=== PATIENT | female | born 1970 | race Caucasian/White ===

== ENCOUNTER 2020-01-13 10:36 | Emergency (ER) | payer MEDICARE ==
[2020-01-13] MEDS ORDERED: Acetaminophen 325 MG Tab PO ONE (11:14)
[2020-01-13] MEDS ORDERED: Sodium Chloride 0.9% 1,000 ML IV ONE (11:14)
[2020-01-13] MEDS ORDERED: Metoclopramide 10 MG/2 ML SDV IVPUSH ONE (11:14)
[2020-01-13] MEDS ORDERED: diphenhydrAMINE 50 MG/ML SDV IVPUSH ONE (11:15)
--- NOTE | 2020-01-13 11:18 | EDM.PDOC ---
ED [facility] GENERAL MEDICAL PROBLEM - General Chief Complaint: General Stated Complaint: HEADACHE Time Seen by Provider: 01/13/20 11:18 Source of Information: Reports: Patient - History of Present Illness INITIAL COMMENTS - FREE TEXT/NARRATIVE: Patient is 49-year-old female past medical history of fibromyalgia and degenerative disc disease as well as migraines presenting with a chief complaint of headache. Patient states that 1.5 weeks ago she started developing a generalized headache which was different than her normal migraines. Is gradual in onset but severe enough to lead to vomiting. Headache resolved on its own and the patient has been without headache for about 1 week. On Saturday and Saturday night of this week, the patient is noted recurrence of a similar headache. Patient states that the headache seems to be worse at night and is associated with vomiting. She feels generally unwell and states that she thinks she has been having a fever. In addition, she notes some dysuria but no flank pain no abdominal pain no changes from her normal bowel habits. She has been taking hydrocodone for the symptoms without relief. Pmhx: None Pshx: None Family Hx: noncontributory Smoking history? no Etoh use? none Drug use? none In addition to that documented in the HPI above, the additional ROS was obtained : Constitutional: Objective fevers are present Eyes: Denies vision changes ENMT: Denies sore throat CV: Denies chest pain Resp: Denies SOB GI: Per HPI : Per HPI MSK: Denies recent trauma Skin: Denies new rashes Neuro: Denies new numbness or tingling or weakness Endocrine: Denies unexpected weight loss Heme: Denies bleeding disorders I have reviewed the triage vital signs Const: Well nourished, well developed, appears stated age Eyes: PERRL, no conjunctival injection HENT: NCAT, Neck supple without meningismus CV: RRR, Warm, well-perfused extremities RESP: CTAB, Unlabored respiratory effort GI: soft, non-tender, non-distended, no masses MSK: No gross deformities appreciated Skin: Warm, dry. No rashes Neuro: Alert, body and frame man II-XII grossly intact. Sensation and motor function of extremities grossly intact. Psych: Appropriate mood and affect Assessment and plan: Patient is a 49-year-old female presenting with chief complaint of headache. Headache is not suspicious for subarachnoid hemorrhage or encephalitis. Patient has normal neuro exam in the emergency room. Patient has normal mental status. Headache description is more consistent with tension type headache. Subjective fevers and body aches may be related to urinary tract infection however patient had normal temperature here and was not tachycardic so I do not suspect pyelonephritis at this time. Patient feels better after the administration of pain medications in the ER and is asked to be discharged home. Patient can be safely discharged with diagnosis of headache and UTI. Patient given return precautions. All questions addressed and answered. Patient agrees with plan. Occipital Head Pain Score (Numeric/FACES): 3 - Related Data Allergies Allergy/AdvReac Type Severity Reaction Status Date / Time ketorolac [From Toradol] Allergy Nausea and Verified 01/13/20 10:47 Vomiting ketorolac tromethamine Allergy Swelling Verified 01/13/20 10:47 [From Toradol] naproxen [From Anaprox] Allergy Anxiety Verified 01/13/20 10:47 pregabalin [From Lyrica] Allergy Swelling Verified 01/13/20 10:47 prochlorperazine Allergy Nausea and Verified 01/13/20 10:47 [From Compazine] Vomiting tramadol Allergy Swelling Verified 01/13/20 10:47 zolmitriptan [From Zomig] Allergy Chest Verified 01/13/20 10:47 Tightness codeine AdvReac Vomiting Verified 01/13/20 10:47 droperidol [From Inapsine] AdvReac Irritabilit Verified 01/13/20 10:47 y prochlorperazine edisylate AdvReac Vomiting Verified 01/13/20 10:47 [From Compazine] prochlorperazine maleate AdvReac Vomiting Verified 01/13/20 10:47 [From Compazine] zomeg Allergy Chest Uncoded 01/13/20 10:47 Presssure Home Meds: Home Meds Citalopram Hydrobromide [Celexa] 40 mg PO DAILY 04/04/15 [History] Rosuvastatin [Crestor] 1 tab PO DAILY 03/25/18 [History] Acetaminophen/HYDROcodone [[place] 325-5 MG] 1 tab PO Q6H PRN #10 tablet 12/15/18 [Rx] Nitrofurantoin Monohyd/M-Cryst [Macrobid 100 mg Capsule] 100 mg PO BID #10 capsule 01/13/20 [Rx] Past Medical History Cardiovascular History: Reports: High Cholesterol Respiratory History: Reports: Bronchitis, Recurrent Gastrointestinal History: Reports: PUD Other Gastrointestinal History: Ulcers, incarcerated hernia Genitourinary History: Reports: None [employer]CR[employer]E [employer] History: Reports: Other [employer] History: Musculoskeletal History: Reports: Back Pain, Chronic Other Musculoskeletal History: degenerative disc disease, carpal tunnel Neurological History: Reports: Headaches, Chronic, Migraines Psychiatric History: Reports: Anxiety, Depression Endocrine/Metabolic History: Reports: Diabetes, Type II, Obesity/BMI 30+, Other (See Below) Other Endocrine/Metabolic History: Diet Controlled per patinet's report Hematologic History: Reports: None Other Hematologic History: elevated WBC count Immunologic History: Reports: None Oncologic (Cancer) History: Reports: None Dermatologic History: Reports: None - Infectious Disease History Infectious Disease History: Reports: Chicken Pox - Past Surgical History Head Surgeries/Procedures: Reports: None HEENT Surgical History: Reports: Oral Surgery GI Surgical History: Reports: Cholecystectomy Female Surgical History: Reports: Section, Hysterectomy, Oophorectomy Social & Family History - Family History Family Medical History: Noncontributory - Tobacco Use Smoking Status *Q: Current Every Day Smoker Years of Tobacco use: 35 Packs/Tins Daily: 0.5 Used Tobacco, but Quit: No Second Hand Smoke Exposure: Yes - Caffeine Use Caffeine Use: Reports: Coffee - Recreational Drug Use Recreational Drug Use: No - Living Situation & Occupation Living situation: Reports: , with Spouse Occupation: Unemployed ED ROS GENERAL - Review of Systems Review Of Systems: See Below ED EXAM, GENERAL - Physical Exam Exam: See Below Course - Vital Signs Last Recorded V/S: Last Vital Signs Temp 36.1 C 01/13/20 14:09 Pulse 63 01/13/20 14:09 Resp 18 01/13/20 14:09 BP 130/83 01/13/20 14:09 Pulse Ox 96 01/13/20 14:09 - Orders/Labs/Meds Orders: Active Orders 24 hr Category Date Time Status CULTURE URINE [RM] Stat Lab 01/13/20 11:25 Received Labs: Laboratory Tests 01/13/20 Range/Units 11:25 Urine Color YELLOW Urine Appearance CLEAR Urine pH 7.0 (5.0-8.0) Ur Specific [place] 1.010 (1.001-1.035) Urine Protein NEGATIVE (NEGATIVE) mg/dL Urine Glucose (UA) NEGATIVE (NEGATIVE) mg/dL Urine Ketones NEGATIVE (NEGATIVE) mg/dL Urine Occult Blood TRACE-INTACT H (NEGATIVE) Urine Nitrite NEGATIVE (NEGATIVE) Urine Bilirubin NEGATIVE (NEGATIVE) Urine Urobilinogen 0.2 (<2.0) EU/dL Ur Leukocyte Esterase SMALL H (NEGATIVE) Urine RBC 1-3 (0-2/HPF) Urine WBC 1-3 (0-5/HPF) Ur Epithelial Cells FEW (NONE-FEW) Urine Bacteria RARE (NEGATIVE) Meds: Medications Discontinued Medications Generic Name Dose Route Start Last Admin Trade Name Freq PRN Reason Stop Dose Admin Acetaminophen 650 mg 01/13/20 11:14 01/13/20 11:24 Tylenol PO 01/13/20 11:15 650 mg NOW ONE Administration Diphenhydramine HCl 25 mg 01/13/20 11:15 01/13/20 11:25 Benadryl IVPUSH 01/13/20 11:16 25 mg ONETIME ONE Administration Sodium Chloride 1,000 mls @ 1,000 mls/hr 01/13/20 11:14 01/13/20 11:25 Normal Saline IV 01/13/20 12:13 1,000 mls/hr .Bolus ONE Administration Metoclopramide HCl 10 mg 01/13/20 11:14 01/13/20 11:25 Reglan IVPUSH 01/13/20 11:15 10 mg ONETIME ONE Administration Morphine Sulfate 6 mg 01/13/20 13:27 01/13/20 13:46 Morphine IVPUSH 01/13/20 13:28 6 mg ONETIME ONE Administration Nitrofurantoin Macrocrystals 100 mg 01/13/20 13:28 01/13/20 13:45 Macrobid PO 01/13/20 13:29 100 mg ONETIME ONE Administration Ondansetron HCl 4 mg 01/13/20 13:27 01/13/20 13:45 Zofran IVPUSH 01/13/20 13:28 4 mg ONETIME ONE Administration Departure - Departure Time of Disposition: 13:50 Disposition: Home, Self-Care 01 Clinical Impression: UTI, Urinary tract infectious disease, Headache - Discharge Information Prescriptions: Nitrofurantoin Monohyd/M-Cryst [Macrobid 100 mg Capsule] 100 mg PO BID #10 capsule Instructions: Urinary Tract Infection, Adult Referrals: Ladi Gallagher PA-C [Primary Care Provider] - Forms: ED Department Discharge Additional Instructions: The following information is given to patients seen in the emergency department who are being discharged to home. This information is to outline your options for follow-up care. We provide all patients seen in our emergency department with a follow-up referral. The need for follow-up, as well as the timing and circumstances, are variable depending upon the specifics of your emergency department visit. If you don't have a primary care physician on staff, we will provide you with a referral. We always advise you to contact your personal physician following an emergency department visit to inform them of the circumstance of the visit and for follow-up with them and/or the need for any referrals to a consulting specialist. The emergency department will also refer you to a specialist when appropriate. This referral assures that you have the opportunity for follow-up care with a specialist. All of these measure are taken in an effort to provide you with optimal care, which includes your follow-up. Under all circumstances we always encourage you to contact your private physician who remains a resource for coordinating your care. When calling for follow-up care, please make the office aware that this follow-up is from your recent emergency room visit. If for any reason you are refused follow-up, please contact the [facility] Emergency Department at and asked to speak to the emergency department charge nurse. Sepsis Event Note - Evaluation Sepsis Screening Result: No Definite Risk - Focused Exam Vital Signs: Vital Signs Temp Pulse Resp BP Pulse Ox 01/13/20 14:09 36.1 C 63 18 130/83 96 01/13/20 10:48 35.7 C L 65 18 154/82 H 98 Date Exam was Performed: 01/13/20 Time Exam was Performed: 16:51 - My Orders Last 24 Hours: My Active Orders 01/13/20 11:25 CULTURE URINE [RM] Stat - Assessment/Plan Last 24 Hours: My Active Orders 01/13/20 11:25 CULTURE URINE [RM] Stat
[2020-01-13] MEDS ORDERED: Ondansetron 4 MG/2 ML SDV IVPUSH ONE (13:27)
[2020-01-13] MEDS ORDERED: Morphine 10 MG/ML Syringe IVPUSH ONE (13:27)
[2020-01-13] MEDS ORDERED: Nitrofurantoin Monohydrate/Macrocrystalline 100 MG Cap PO ONE (13:28)
[2020-01-13 14:13] VITALS: BP 130/83; PULSE 63
== END 2020-01-13 14:09 | disposition home or self-care (01) ==
LOC: MW.ED 10:36
DX: R51 Headache (principal); N39.0 Urinary tract infection, site not specified; E78.00 Pure hypercholesterolemia, unspecified; F41.9 Anxiety disorder, unspecified; F32.9 Major depressive disorder, single episode, unspecified; E11.9 Type 2 diabetes mellitus without complications; E66.9 Obesity, unspecified; Z68.36 Body mass index [BMI] 36.0-36.9, adult; F17.210 Nicotine dependence, cigarettes, uncomplicated; Z88.6 Allergy status to analgesic agent; Z88.8 Allergy status to other drugs, medicaments and biological substances; Z88.5 Allergy status to narcotic agent
CPT/HCPCS: 81001; 87086; 96361; 96374; 96375; 99284; A9270; J1200; J2270; J2405; J2765; J7030; 99283

== ENCOUNTER 2020-03-12 16:25 | Emergency (ER) | payer SELFPAY ==
[2020-03-12] MEDS ORDERED: Dexamethasone 10 MG/ML SDV IM ONE (17:19)
[2020-03-12] MEDS ORDERED: Ketorolac 15 MG/ML SDV IM ONE (17:19)
--- NOTE | 2020-03-12 17:24 | EDM.PDOC ---
<Brynn Mc - Last Filed: 03/12/20 19:48> [facility] GENERAL MEDICAL PROBLEM - General Chief Complaint: Neck Problem Stated Complaint: NECK PAIN/HEADACHE Time Seen by Provider: 03/12/20 17:18 - History of Present Illness INITIAL COMMENTS - FREE TEXT/NARRATIVE: History of present illness: 49-year-old female tenting with ongoing headache and neck pain for the last 3 months after a fall in November 2019. Apparently she lost her balance and struck her head and has been having some ongoing symptoms since then. She did not seek care at that time. She does report she has some prior neck issues and at this point she feels like she cannot even turn her head from side to side and the pain has been ongoing. Review of systems: As per history of present illness and below otherwise all systems reviewed and negative. Past medical history: As per history of present illness and as reviewed below otherwise noncontributory. Surgical history: As per history of present illness and as reviewed below otherwise noncontributory. Social history: No reported history of drug or alcohol abuse. Denies tobacco Family history: As per history of present illness and as reviewed below otherwise noncontribut ory. Physical exam: GEN: no acute distress, well appearing HEENT: Atraumatic, normocephalic, mucous membranes moist, Neck: Neck tenderness, midline and paraspinal tenderness, patient with limited range of motion due to pain.. Lungs: No respiratory distress. Heart: RRR Extremities: Atraumatic. Neurovascularly intact. Neuro: Awake, alert, oriented. Neuro Exam nonfocal. Psych: Appears anxious Skin: warm, dry, no lesions Diagnostics: CT head and neck Therapeutics: [] MDM: Impression: [] Plan: [] Definitive disposition and diagnosis as appropriate pending reevaluation and review of above. Neck Pain Score (Numeric/FACES): 8 - Related Data Allergies Allergy/AdvReac Type Severity Reaction Status Date / Time ketorolac [From Toradol] Allergy Nausea and Verified 03/12/20 16:38 Vomiting ketorolac tromethamine Allergy Swelling Verified 03/12/20 16:38 [From Toradol] naproxen [From Anaprox] Allergy Anxiety Verified 03/12/20 16:38 pregabalin [From Lyrica] Allergy Swelling Verified 03/12/20 16:38 prochlorperazine Allergy Nausea and Verified 03/12/20 16:38 [From Compazine] Vomiting tramadol Allergy Swelling Verified 03/12/20 16:38 zolmitriptan [From Zomig] Allergy Chest Verified 03/12/20 16:38 Tightness codeine AdvReac Vomiting Verified 03/12/20 16:38 droperidol [From Inapsine] AdvReac Irritabilit Verified 03/12/20 16:38 y prochlorperazine edisylate AdvReac Vomiting Verified 03/12/20 16:38 [From Compazine] prochlorperazine maleate AdvReac Vomiting Verified 03/12/20 16:38 [From Compazine] zomeg Allergy Chest Uncoded 03/12/20 16:38 Presssure Home Meds: Home Meds Citalopram Hydrobromide [Celexa] 40 mg PO DAILY 04/04/15 [History] Rosuvastatin [Crestor] 1 tab PO DAILY 03/25/18 [History] Acetaminophen/HYDROcodone [[place] 325-5 MG] 1 tab PO Q6H PRN #10 tablet 12/15/18 [Rx] Pregabalin [Lyrica] 1 tab PO DAILY 03/12/20 [History] Past Medical History Cardiovascular History: Reports: High Cholesterol Respiratory History: Reports: Bronchitis, Recurrent Gastrointestinal History: Reports: PUD Other Gastrointestinal History: Ulcers, incarcerated hernia Genitourinary History: Reports: None DIRECTOR OF STUDENT AFFAIRS History: Reports: Other DIRECTOR OF STUDENT AFFAIRS History: Musculoskeletal History: Reports: Back Pain, Chronic Other Musculoskeletal History: degenerative disc disease, carpal tunnel Neurological History: Reports: Headaches, Chronic, Migraines Psychiatric History: Reports: Anxiety, Depression Endocrine/Metabolic History: Reports: Diabetes, Type II, Obesity/BMI 30+, Other (See Below) Other Endocrine/Metabolic History: Diet Controlled per patinet's report Hematologic History: Reports: None Other Hematologic History: elevated WBC count Immunologic History: Reports: None Oncologic (Cancer) History: Reports: None Dermatologic History: Reports: None - Infectious Disease History Infectious Disease History: Reports: None - Past Surgical History Head Surgeries/Procedures: Reports: None HEENT Surgical History: Reports: Oral Surgery GI Surgical History: Reports: Cholecystectomy Female Surgical History: Reports: Section, Hysterectomy, Oophorectomy Social & Family History - Family History Family Medical History: Noncontributory - Tobacco Use Smoking Status *Q: Never Smoker - Caffeine Use Caffeine Use: Reports: None - Recreational Drug Use Recreational Drug Use: No - Living Situation & Occupation Living situation: Reports: , with Spouse Occupation: Unemployed ED ROS GENERAL - Review of Systems Review Of Systems: See Below (See HP I) ED EXAM, UPPER BACK/NECK PAIN - Physical Exam Exam: See Below (See HPI) Course - Vital Signs Text/Narrative:: Chronic head and neck pain after remote injury. Suspect ongoing concussion type symptoms and tension headaches. Will attempt pain control and steroid administration. Will check CT scans as she never had any imaging after the initial injury. - Re-Assessments/Exams Free Text/Narrative Re-Assessment/Exam: 03/12/20 19:49 Reports she has had no symptom relief. Additional pain medication will be ordered. I discussed limited ability for pain medications based on her multiple medication allergies and other multiple potential interactions. Will give lidocaine patch and IM Dilaudid. Patient reports she will call her pain management doctor for follow-up. We did discuss that she would likely benefit from some physical therapy to help loosen and increase flexibility of the muscles of her neck which have likely tightened significantly and continue to tighten since the injury. Departure - Departure Disposition: Home, Self-Care 01 Clinical Impression: DJD (degenerative joint disease) of cervical spine, Pain - Discharge Information Instructions: Acute Pain, Adult Referrals: Ladi Gallagher PA-C [Primary Care Provider] - Forms: ED Department Discharge Additional Instructions: The following information is given to patients seen in the emergency department who are being discharged to home. This information is to outline your options for follow-up care. We provide all patients seen in our emergency department with a follow-up referral. The need for follow-up, as well as the timing and circumstances, are variable depending upon the specifics of your emergency department visit. If you don't have a primary care physician on staff, we will provide you with a referral. We always advise you to contact your personal physician following an emergency department visit to inform them of the circumstance of the visit and for follow-up with them and/or the need for any referrals to a consulting specialist. The emergency department will also refer you to a specialist when appropriate. This referral assures that you have the opportunity for follow-up care with a specialist. All of these measure are taken in an effort to provide you with optimal care, which includes your follow-up. Under all circumstances we always encourage you to contact your private physician who remains a resource for coordinating your care. When calling for follow-up care, please make the office aware that this follow-up is from your recent emergency room visit. If for any reason you are refused follow-up, please contact the [facility] Emergency Department at and asked to speak to the emergency department charge nurse. Sepsis Event Note (ED) - Evaluation Sepsis Screening Result: No Definite Risk <Krishna Matson - Last Filed: 03/12/20 20:11> Course - Vital Signs Last Recorded V/S: Last Vital Signs Temp 97.8 F 03/12/20 16:39 Pulse 92 03/12/20 18:46 Resp 18 03/12/20 16:39 BP 137/79 03/12/20 18:46 Pulse Ox 98 03/12/20 18:46 - Orders/Labs/Meds Meds: Medications Discontinued Medications Generic Name Dose Route Start Last Admin Trade Name Freq PRN Reason Stop Dose Admin Dexamethasone 10 mg 03/12/20 17:19 03/12/20 17:33 Dexamethasone IM 03/12/20 17:20 10 mg ONETIME ONE Administration Hydromorphone HCl 1 mg 03/12/20 19:49 03/12/20 20:05 Dilaudid IM 03/12/20 19:50 1 mg ONETIME ONE Administration Ketorolac Tromethamine 30 mg 03/12/20 17:19 03/12/20 17:27 Toradol IM 03/12/20 17:20 Not Given ONETIME ONE Lidocaine 700 mg 03/12/20 19:52 03/12/20 20:04 Lidoderm 5% TOP 03/12/20 19:53 700 mg ONETIME ONE Administration Oxycodone/Acetaminophen 1 tab 03/12/20 17:26 03/12/20 17:31 Percocet 325-5 Mg PO 03/12/20 17:27 1 tab ONETIME ONE Administration Departure - Departure Time of Disposition: 20:10 Condition: Good Sepsis Event Note (ED) - Focused Exam Vital Signs: Vital Signs Temp Pulse Resp BP Pulse Ox 03/12/20 18:46 92 137/79 98 03/12/20 16:39 97.8 F 84 18 138/91 H 98
[2020-03-12] MEDS ORDERED: Acetaminophen/oxyCODONE 325-5 MG Tab PO ONE (17:26)
--- NOTE | 2020-03-12 18:16 | CT ---
CT cervical spine Technique: Multiple axial sections were obtained from above C1 inferiorly to the bottom of T2. Reconstructed sagittal and coronal images were reviewed. Comparison: No prior cervical spine imaging is available. Findings: Vertebral body heights and disc spaces are maintained. No bony central or bony neural foraminal stenosis is seen. No fracture is appreciated. No abnormal subluxation is appreciated. Impression: 1. Nothing acute is appreciated on CT study of the cervical spine. Diagnostic code #1 This report was dictated in MDT
--- NOTE | 2020-03-12 18:17 | CT ---
Head CT Technique: Multiple axial sections through the brain were obtained. Intravenous contrast was not utilized. Comparison: No prior intracranial imaging is available. Findings: Retention cyst is noted within the right maxillary sinus measuring approximately 1.5 cm in size. No acute finding is seen within the visualized paranasal sinuses. Visualized mastoid sinuses show nothing acute. No acute calvarial finding is seen. Ventricles along with basal cisterns and sulci over the convexities are within normal limits for the patient's age. No abnormal parenchymal densities are seen. No evidence of intracranial hemorrhage. No midline shift or mass-effect is appreciated. Impression: 1. Retention cyst within the right maxillary sinus. 2. Nothing acute is seen on noncontrast head CT study. Diagnostic code #2 This report was dictated in MDT
[2020-03-12 18:47] VITALS: BP 137/79; PULSE 92
[2020-03-12] MEDS ORDERED: HYDROmorphone 1 MG/ML Syringe IM ONE (19:49)
[2020-03-12] MEDS ORDERED: Lidocaine 5% 700 MG Patch TOP ONE (19:52)
== END 2020-03-12 20:23 | disposition home or self-care (01) ==
LOC: MW.ED 16:25
DX: M47.812 Spondylosis without myelopathy or radiculopathy, cervical region (principal); F41.9 Anxiety disorder, unspecified; F32.9 Major depressive disorder, single episode, unspecified; E78.00 Pure hypercholesterolemia, unspecified; E11.9 Type 2 diabetes mellitus without complications; E66.9 Obesity, unspecified; Z68.34 Body mass index [BMI] 34.0-34.9, adult; Z88.6 Allergy status to analgesic agent; Z88.8 Allergy status to other drugs, medicaments and biological substances; Z88.5 Allergy status to narcotic agent; Z79.899 Other long term (current) drug therapy
CPT/HCPCS: 70450; 72125; 96372; 99284; A9270; J1100; J1170

== ENCOUNTER 2020-05-13 10:24 | Emergency (ER) | payer MEDICARE ==
--- NOTE | 2020-05-13 10:39 | EDM.PDOC ---
ED HPI GENERAL MEDICAL PROBLEM - General Chief Complaint: Genitourinary Problem Stated Complaint: URINARY BLOOD Time Seen by Provider: 05/13/20 10:25 Source of Information: Reports: Patient History Limitations: Reports: No Limitations - History of Present Illness INITIAL COMMENTS - FREE TEXT/NARRATIVE: HISTORY AND PHYSICAL: History of present illness: Patient is a 49-year-old female who presents to the ED today with concern hematuria that started this morning with mild abdominal discomfort. Patient states that when she woke up and went to the bathroom she noticed blood in her urine. Patient states that shortly after this she began having lower abdominal discomfort. Patient states she has a history of her gallbladder removed and partial hysterectomy but denies any other abdominal surgeries. Patient states she has not taken anything for her symptoms but does take hydrocodone daily due to chronic back pain and fibromyalgia. Patient states she also has a history of high cholesterol and migraines but denies any other health history. Patient states she has not had symptoms like this prior. Patient states the bleeding is not coming from her vagina and only occurs when she urinates. Patient denies fever, chills, chest pain, shortness of breath, or cough. Denies headache, neck stiff ness, change in vision, syncope, or near syncope. Denies nausea, vomiting, diarrhea, constipation, or dysuria. Has not noted any blood stool. Patient has been eating and drinking appropriately. Review of systems: As per history of present illness and below otherwise all systems reviewed and negative. Past medical history: As per history of present illness and as reviewed below otherwise noncontributory. Surgical history: As per history of present illness and as reviewed below otherwise noncontributory. Social history: See social history for further information Family history: As per history of present illness and as reviewed below otherwise noncontributory. Physical exam: General: Patient is alert, oriented, and in no acute distress. Patient laying comfortably on exam table. HEENT: Atraumatic, normocephalic, pupils equal and reactive bilaterally, negativ e for conjunctival pallor or scleral icterus, mucous membranes moist, TMs normal bilaterally, throat clear, neck supple, nontender, trachea midline. No drooling or trismus noted. No meningeal signs. No hot potato voice noted. Lungs: Clear to auscultation, breath sounds equal bilaterally, chest nontender. Heart: S1S2, regular rate and rhythm without overt murmur Abdomen: Physical exam of abdomen is limited due to body habitus. Otherwise, soft, nondistended, mild discomfort of generalized lower abdomen. Negative for masses or hepatosplenomegaly. Negative for costovertebral tenderness. Pelvis: Stable nontender. Genitourinary: Deferred. Rectal: Deferred. Skin: Intact, warm, dry. No lesions or rashes noted. Extremities: Atraumatic, negative for cords or calf pain. Neurovascular unremarkable. Neuro: Awake, alert, oriented. Cranial nerves II through XII unremarkable. Cerebellum unremarkable. Motor and sensory unremarkable throughout. Exam nonfocal. Notes: Discussed importance for follow-up with a primary care provider. Voices understanding and is agreeable to plan of care. Denies any further questions or concerns at this time. Diagnostics: UA, urine hCG, urine culture, EKG, CBC, CMP, Lactate, Blood cultures x 2, abd/pelvic CT Therapeutics: NS, Rocephin 1g IV, Morphine 2mg IV Prescription: Bactrim DS, Pyridium Impression: Urinary tract infection, uncomplicated Plan: 1. Take medication as prescribed. Follow-up with a primary care provider as discussed. Return to the ED as needed and as discussed. Definitive disposition and diagnosis as appropriate pending reevaluation and review of above. Bladder Pain Score (Numeric/FACES): 8 - Related Data Allergies Allergy/AdvReac Type Severity Reaction Status Date / Time ketorolac [From Toradol] Allergy Nausea and Verified 05/13/20 10:41 Vomiting ketorolac tromethamine Allergy Swelling Verified 05/13/20 10:41 [From Toradol] naproxen [From Anaprox] Allergy Anxiety Verified 05/13/20 10:41 pregabalin [From Lyrica] Allergy Swelling Verified 05/13/20 10:41 prochlorperazine Allergy Nausea and Verified 05/13/20 10:41 [From Compazine] Vomiting tramadol Allergy Swelling Verified 05/13/20 10:41 zolmitriptan [From Zomig] Allergy Chest Verified 05/13/20 10:41 Tightness codeine AdvReac Vomiting Verified 05/13/20 10:41 droperidol [From Inapsine] AdvReac Irritabilit Verified 05/13/20 10:41 y prochlorperazine edisylate AdvReac Vomiting Verified 05/13/20 10:41 [From Compazine] prochlorperazine maleate AdvReac Vomiting Verified 05/13/20 10:41 [From Compazine] zomeg Allergy Chest Uncoded 05/13/20 10:41 Presssure Home Meds: Home Meds Citalopram Hydrobromide [Celexa] 40 mg PO DAILY 04/04/15 [History] Rosuvastatin [Crestor] 1 tab PO DAILY 03/25/18 [History] Acetaminophen/HYDROcodone [[place] 325-5 MG] 1 tab PO Q6H PRN #10 tablet 12/15/18 [Rx] Phenazopyridine HCl [Pyridium] 200 mg PO TID 2 Days #6 tablet 05/13/20 [Rx] Sulfamethoxazole/Trimethoprim [Bactrim Ds Tablet] 1 each PO BID 7 Days #14 tablet 05/13/20 [Rx] Past Medical History Cardiovascular History: Reports: High Cholesterol Respiratory History: Reports: Bronchitis, Recurrent Gastrointestinal History: Reports: PUD Other Gastrointestinal History: Ulcers, incarcerated hernia Genitourinary History: Reports: None MOLD CARPENTER History: Reports: Other MOLD CARPENTER History: Musculoskeletal History: Reports: Back Pain, Chronic Other Musculoskeletal History: degenerative disc disease, carpal tunnel Neurological History: Reports: Headaches, Chronic, Migraines Psychiatric History: Reports: Anxiety, Depression Endocrine/Metabolic History: Reports: Diabetes, Type II, Obesity/BMI 30+, Other (See Below) Other Endocrine/Metabolic History: Diet Controlled per patinet's report Hematologic History: Reports: None Other Hematologic History: elevated WBC count Immunologic History: Reports: None Oncologic (Cancer) History: Reports: None Dermatologic History: Reports: None - Infectious Disease History Infectious Disease History: Reports: None - Past Surgical History Head Surgeries/Procedures: Reports: None HEENT Surgical History: Reports: Oral Surgery GI Surgical History: Reports: Cholecystectomy Female Surgical History: Reports: Section, Hysterectomy, Oophorectomy Social & Family History - Family History Family Medical History: Noncontributory - Caffeine Use Caffeine Use: Reports: None - Living Situation & Occupation Living situation: Reports: , with Spouse Occupation: Unemployed ED ROS GENERAL - Review of Systems Review Of Systems: Comprehensive ROS is negative, except as noted in HPI. ED EXAM, GENERAL - Physical Exam Exam: See Below (see dictation) Course - Vital Signs Last Recorded V/S: Last Vital Signs Temp 97.7 F 05/13/20 13:25 Pulse 62 05/13/20 13:25 Resp 16 05/13/20 11:28 BP 128/79 05/13/20 13:25 Pulse Ox 94 L 05/13/20 13:25 - Orders/Labs/Meds Orders: Active Orders 24 hr Category Date Time Status EKG Documentation Completion [RC] STAT Care 05/13/20 11:19 Active CULTURE BLOOD [BC] Stat Lab 05/13/20 11:46 Received CULTURE BLOOD [BC] Stat Lab 05/13/20 12:11 Results CULTURE URINE [RM] Stat Lab 05/13/20 10:30 Received Blood Culture x2 Reflex Set [OM.PC] Stat Oth 05/13/20 11:19 Ordered Labs: Laboratory Tests 05/13/20 05/13/20 05/13/20 Range/Units 10:30 10:30 11:46 WBC 9.70 (4.0-11.0) K/uL RBC 5.34 (4.30-5.90) M/uL Hgb 16.3 H (12.0-16.0) g/dL Hct 48.9 H (36.0-46.0) % MCV 91.6 (80.0-98.0) fL MCH 30.5 (27.0-32.0) pg MCHC 33.3 (31.0-37.0) g/dL RDW Std Deviation 44.1 (28.0-62.0) fl RDW Coeff of Delphine 13 (11.0-15.0) % Plt Count 176 (150-400) K/uL MPV 11.40 (7.40-12.00) fL Neut % (Auto) 56.4 (48.0-80.0) % Lymph % (Auto) 33.2 (16.0-40.0) % [place] % (Auto) 8.4 (0.0-15.0) % Eos % (Auto) 1.4 (0.0-7.0) % Baso % (Auto) 0.6 (0.0-1.5) % Neut # (Auto) 5.5 (1.4-5.7) K/uL Lymph # (Auto) 3.2 H (0.6-2.4) K/uL [place] # (Auto) 0.8 (0.0-0.8) K/uL Eos # (Auto) 0.1 (0.0-0.7) K/uL Baso # (Auto) 0.1 (0.0-0.1) K/uL Nucleated RBC % 0.0 /100WBC Nucleated RBCs # 0 K/uL Lactate (0.20-2.00) mmol/L Sodium (136-145) mmol/L Potassium (3.5-5.1) mmol/L Chloride (98-107) mmol/L Carbon Dioxide (21.0-32.0) mmol/L BUN (7.0-18.0) mg/dL Creatinine (0.6-1.0) mg/dL Est Cr Clr Drug Dosing mL/min Estimated GFR (MDRD) ml/min Glucose (74-106) mg/dL Calcium (8.5-10.1) mg/dL Total Bilirubin (0.2-1.0) mg/dL AST (15-37) IU/L ALT (14-63) IU/L Alkaline Phosphatase (46-116) U/L Total Protein (6.4-8.2) g/dL Albumin (3.4-5.0) g/dL Globulin (2.6-4.0) g/dL Albumin/Globulin Ratio (0.9-1.6) Lipase (73-393) U/L Urine Color RED Urine Appearance SLT CLOUDY Urine pH 7.5 (5.0-8.0) Ur Specific [place] 1.015 (1.001-1.035) Urine Protein 100 H (NEGATIVE) mg/dL Urine Glucose (UA) NEGATIVE (NEGATIVE) mg/dL Urine Ketones NEGATIVE (NEGATIVE) mg/dL Urine Occult Blood LARGE H (NEGATIVE) Urine Nitrite POSITIVE H (NEGATIVE) Urine Bilirubin MODERATE H (NEGATIVE) Urine Ictotest NEGATIVE Urine Urobilinogen 1.0 (<2.0) EU/dL Ur Leukocyte Esterase MODERATE H (NEGATIVE) Urine RBC 40-50 (0-2/HPF) Urine WBC 20-30 (0-5/HPF) Ur Epithelial Cells RARE (NONE-FEW) Urine Bacteria RARE (NEGATIVE) Urine HCG, Qual NEGATIVE (NEGATIVE) 05/13/20 05/13/20 Range/Units 11:46 11:46 WBC (4.0-11.0) K/uL RBC (4.30-5.90) M/uL Hgb (12.0-16.0) g/dL Hct (36.0-46.0) % MCV (80.0-98.0) fL MCH (27.0-32.0) pg MCHC (31.0-37.0) g/dL RDW Std Deviation (28.0-62.0) fl RDW Coeff of Delphine (11.0-15.0) % Plt Count (150-400) K/uL MPV (7.40-12.00) fL Neut % (Auto) (48.0-80.0) % Lymph % (Auto) (16.0-40.0) % [place] % (Auto) (0.0-15.0) % Eos % (Auto) (0.0-7.0) % Baso % (Auto) (0.0-1.5) % Neut # (Auto) (1.4-5.7) K/uL Lymph # (Auto) (0.6-2.4) K/uL [place] # (Auto) (0.0-0.8) K/uL Eos # (Auto) (0.0-0.7) K/uL Baso # (Auto) (0.0-0.1) K/uL Nucleated RBC % /100WBC Nucleated RBCs # K/uL Lactate 0.9 (0.20-2.00) mmol/L Sodium 141 (136-145) mmol/L Potassium 4.0 (3.5-5.1) mmol/L Chloride 107 (98-107) mmol/L Carbon Dioxide 26.7 (21.0-32.0) mmol/L BUN 8 (7.0-18.0) mg/dL Creatinine 0.8 (0.6-1.0) mg/dL Est Cr Clr Drug Dosing 75.07 mL/min Estimated GFR (MDRD) > 60.0 ml/min Glucose 96 (74-106) mg/dL Calcium 9.4 (8.5-10.1) mg/dL Total Bilirubin 0.7 (0.2-1.0) mg/dL AST 21 (15-37) IU/L ALT 23 (14-63) IU/L Alkaline Phosphatase 74 (46-116) U/L Total Protein 7.8 (6.4-8.2) g/dL Albumin 4.2 (3.4-5.0) g/dL Globulin 3.6 (2.6-4.0) g/dL Albumin/Globulin Ratio 1.2 (0.9-1.6) Lipase 85 (73-393) U/L Urine Color Urine Appearance Urine pH (5.0-8.0) Ur Specific [place] (1.001-1.035) Urine Protein (NEGATIVE) mg/dL Urine Glucose (UA) (NEGATIVE) mg/dL Urine Ketones (NEGATIVE) mg/dL Urine Occult Blood (NEGATIVE) Urine Nitrite (NEGATIVE) Urine Bilirubin (NEGATIVE) Urine Ictotest Urine Urobilinogen (<2.0) EU/dL Ur Leukocyte Esterase (NEGATIVE) Urine RBC (0-2/HPF) Urine WBC (0-5/HPF) Ur Epithelial Cells (NONE-FEW) Urine Bacteria (NEGATIVE) Urine HCG, Qual (NEGATIVE) Meds: Medications Discontinued Medications Generic Name Dose Route Start Last Admin Trade Name Freq PRN Reason Stop Dose Admin Sodium Chloride 1,000 mls @ 999 mls/hr 05/13/20 11:17 05/13/20 11:51 Normal Saline IV 05/13/20 12:17 999 mls/hr STAT ONE Administration Ceftriaxone Sodium/Dextrose 1 50 mls @ 100 mls/hr 05/13/20 11:17 05/13/20 11:50 gm/ Premix IV 05/13/20 11:46 100 mls/hr ONETIME ONE Administration Iopamidol 100 ml 05/13/20 13:02 05/13/20 13:03 Isovue Multipack-370 (76%) IVPUSH 05/13/20 13:03 100 ml ONETIME ONE Administration Morphine Sulfate 2 mg 05/13/20 11:29 05/13/20 11:51 Morphine IVPUSH 05/13/20 11:30 2 mg ONETIME ONE Administration Ondansetron HCl 4 mg 05/13/20 11:29 05/13/20 11:51 Zofran IVPUSH 05/13/20 11:30 4 mg ONETIME ONE Administration Departure - Departure Time of Disposition: 13:36 Disposition: Home, Self-Care 01 Clinical Impression: Urinary tract infection Qualifiers: Urinary tract infection type: acute cystitis Hematuria presence: with hematuria Qualified Code(s): N30.01 - Acute cystitis with hematuria - Discharge Information Prescriptions: Sulfamethoxazole/Trimethoprim [Bactrim Ds Tablet] 1 each PO BID 7 Days #14 tablet Phenazopyridine HCl [Pyridium] 200 mg PO TID 2 Days #6 tablet Referrals: PCP,Not In Area [Primary Care Provider] - Forms: ED Department Discharge Additional Instructions: The following information is given to patients seen in the emergency department who are being discharged to home. This information is to outline your options for follow-up care. We provide all patients seen in our emergency department with a follow-up referral. The need for follow-up, as well as the timing and circumstances, are variable depending upon the specifics of your emergency department visit. If you don't have a primary care physician on staff, we will provide you with a referral. We always advise you to contact your personal physician following an emergency department visit to inform them of the circumstance of the visit and for follow-up with them and/or the need for any referrals to a consulting specialist. The emergency department will also refer you to a specialist when appropriate. This referral assures that you have the opportunity for follow-up care with a specialist. All of these measure are taken in an effort to provide you with optimal care, which includes your follow-up. Under all circumstances we always encourage you to contact your private physician who remains a resource for coordinating your care. When calling for follow-up care, please make the office aware that this follow-up is from your recent emergency room visit. If for any reason you are refused follow-up, please contact the [facility] Department at and asked to speak to the emergency department charge nurse. [facility] [address] [place] [id number] [facility] [address] [place] [id number] 1. Take medication as prescribed. Follow-up with a primary care provider as discussed. Return to the ED as needed and as discussed. Sepsis Event Note (ED) - Focused Exam Vital Signs: Vital Signs Temp Pulse Resp BP Pulse Ox 05/13/20 13:25 97.7 F 62 128/79 94 L 05/13/20 11:28 96.7 F L 71 16 187/96 H 96 05/13/20 10:30 96.2 F L 79 20 163/83 H 97 - My Orders Last 24 Hours: My Active Orders 05/13/20 10:30 CULTURE URINE [RM] Stat 05/13/20 11:19 EKG Documentation Completion [RC] STAT Blood Culture x2 Reflex Set [OM.PC] Stat 05/13/20 11:46 CULTURE BLOOD [BC] Stat 05/13/20 12:11 CULTURE BLOOD [BC] Stat - Assessment/Plan Last 24 Hours: My Active Orders 05/13/20 10:30 CULTURE URINE [RM] Stat 05/13/20 11:19 EKG Documentation Completion [RC] STAT Blood Culture x2 Reflex Set [OM.PC] Stat 05/13/20 11:46 CULTURE BLOOD [BC] Stat 05/13/20 12:11 CULTURE BLOOD [BC] Stat
[2020-05-13] MEDS ORDERED: Sodium Chloride 0.9% 1,000 ML IV ONE (11:17)
[2020-05-13] MEDS ORDERED: cefTRIAXone 1 GM in Premix Bag 1 BAG IV ONE (11:17)
[2020-05-13] MEDS ORDERED: Morphine 2 MG/ML SYRINGE IVPUSH ONE (11:29)
[2020-05-13] MEDS ORDERED: Ondansetron 4 MG/2 ML SDV IVPUSH ONE (11:29)
[2020-05-13 12:30] LABS: BLOOD UREA NITROGEN,BUN 8 mg/dL (7.0-18.0); CARBON DIOXIDE,CO2 26.7 mmol/L (21.0-32.0); CHLORIDE,CL 107 mmol/L (98-107); GLUCOSE RANDOM 96 mg/dL (74-106); LIPASE 85 U/L (73-393); SODIUM,NA 141 mmol/L (136-145)
[2020-05-13] MEDS ORDERED: Iopamidol 755 MG/ML 500 ML Multipack Bottle IVPUSH ONE (13:02)
--- NOTE | 2020-05-13 13:30 | CT ---
CT abdomen and pelvis (without and with intravenous contrast) Technique: Multiple axial sections were obtained from above the dome of the diaphragm inferiorly to the pubic symphysis. Intravenous and oral contrast not utilized. Intravenous contrast then given and imaging was repeated through the abdomen and pelvis. Reconstructed coronal and sagittal images were obtained. Findings: Kidneys show no abnormal calcifications. No ureteral dilatation or ureteral calculi are seen. Visualized lung bases show nothing acute. Liver contains no focal abnormality. Surgical clips seen from prior cholecystectomy. Spleen appears normal in size. Adrenal glands show no nodule. Kidneys show symmetric contrast enhancement without hydronephrosis or mass. Aorta shows mild atherosclerotic change without aneurysm. No retroperitoneal adenopathy or mesenteric abnormalities are seen. No pelvic mass or adenopathy is noted. No free fluid or inflammatory change is appreciated. Appendix not visualized with certainty. Mild sigmoid diverticulosis is seen without evidence of diverticulitis. Bone window settings were reviewed. No acute osseous finding is appreciated. Mild degenerative change is scattered within the spine. Impression: 1. Findings as noted above. Nothing acute is appreciated. Diagnostic code #2 This report was dictated in MDT
[2020-05-13 14:39] VITALS: BP 112/75; PULSE 66
== END 2020-05-13 13:43 | disposition home or self-care (01) ==
LOC: MW.ED 10:24
DX: N30.01 Acute cystitis with hematuria (principal); E78.00 Pure hypercholesterolemia, unspecified; F32.9 Major depressive disorder, single episode, unspecified; E11.9 Type 2 diabetes mellitus without complications; E66.9 Obesity, unspecified; Z68.34 Body mass index [BMI] 34.0-34.9, adult; Z88.6 Allergy status to analgesic agent; Z88.8 Allergy status to other drugs, medicaments and biological substances; Z88.5 Allergy status to narcotic agent; Z79.899 Other long term (current) drug therapy
CPT/HCPCS: 74178; 80053; 81001; 81025; 83605; 83690; 85025; 87040; 87086; 93005; 96361; 96365; 96375; 99284; J0696; J2270; J2405; J7030; Q9967

== ENCOUNTER 2021-05-02 12:42 | Emergency (ER) | payer MEDICARE ==
--- NOTE | 2021-05-02 14:22 | EDM.PDOC ---
ED HPI GENERAL MEDICAL PROBLEM - General Chief Complaint: Abdominal Pain Stated Complaint: RIGHT SIDE PAIN Time Seen by Provider: 05/02/21 14:22 Source of Information: Reports: Patient History Limitations: Reports: No Limitations - History of Present Illness INITIAL COMMENTS - FREE TEXT/NARRATIVE: HISTORY AND PHYSICAL: History of present illness: Patient is a 50-year-old female who presents to the emergency room with complaints of right upper/lower quadrant pain. She states she has had dull intermittent abdominal pain over the past 1 month, worse over the past few days. Today she developed nausea without vomiting. Patient denies any fever, chills, headache, change in vision, syncope or near syncope. Denies any chest pain, back pain, shortness of breath or cough. Denies any diarrhea, constipation or dysuria. Has not noted any blood in urine or stool. Patient has been eating and drinking appropriately. Review of systems: As per history of present illness and below otherwise all systems reviewed and negative. Past medical history: As per history of present illness and as reviewed below otherwise noncontributory. Surgical history: As per history of present illness and as reviewed below otherwise noncontributory. Social history: See social history for further information Family history: As per history of present illness and as reviewed below otherwise noncontributory. Physical exam: General: Well developed and well nourished. Alert and orientated x 3. Nontoxic in appearance and in no acute distress. Vital signs are stable and have been reviewed by me. Nursing notes were reviewed. HEENT: Atraumatic, normocephalic, pupils equal and reactive bilaterally, negative for conjunctival pallor or scleral icterus, mucous membranes moist, neck supple, nontender, trachea midline. No drooling or trismus noted. No meningeal signs. No hot potato voice noted. Lungs: Clear to auscultation bilaterally. No wheezes, rales, or rhonchi. Chest nontender. Normal work of breathing, no accessory muscles used. Heart: S1S2, regular rate and rhythm without overt murmur, gallops, or rubs. No JVD. No peripheral edema Abdomen: Soft, nondistended, right upper and mid abdominal pain. No rebound tenderness. Normoactive bowel sounds. Negative for masses or costovertebral tenderness. Skin: Intact, warm, dry. No lesions or rashes noted. Hematologic: No petechiae or purpra. Mucosa appropriate color and normal nail bed color and refill. Extremities: Atraumatic, moves all extremities per self without difficulty or deficits, negative for cords or calf pain. Neurovascular unremarkable. Neuro: Awake, alert, oriented. Cranial nerves II through XII unremarkable. Cerebellum unremarkable. Motor and sensory unremarkable throughout. Exam nonfocal. Psychiatric: Mood and affect are appropriate. Normal thought process. Answering questions appropriately. Please note that the patient was seen and evaluated during the 2019 SARS-CoV-2 novel coronavirus pandemic period. Community viral transmission is ongoing at time of this encounter and the emergency department is operating under pandemic response procedures. Medical Decision Making: Patient is a 50-year-old female who presents to the emergency room with complaints of right-sided abdominal pain and nausea. She has had mild symptoms of this for approximately 1 month but worse over the past few days. She is tender to touch although has no rebound tenderness. She states she has had her gallbladder removed. Physical exam is otherwise unremarkable. Will order lab work and give her some nausea and pain medication. Lab work is essentially unremarkable. CT shows no acute findings in the abdomen or pelvis. Mild diffuse hepatic steatosis. Mild biliary dilation likely due to post cholecystectomy state. I have talked with the patient about today's findings, in addition to providing specific details for plan of care. Reassessment at the time of disposition demonstrates that the patient is in no acute distress. The patient is stable for discharge, counseling was provided and we discussed in great detail signs and symptoms that would prompt them to return to the Emergency Department. Medication, follow up and supportive care measures were reviewed and discussed. Voices understanding and is agreeable to plan of care. Denies any further questions or concerns at this time. Diagnostics: CBC, CMP, UA, lipase Therapeutics: IV fluid, Zofran, morphine Prescription: Zofran Impression: Abdominal Pain Plan: 1. You were evaluated today on an emergent basis. Your lab work and CT of the abdomen and pelvis are within normal limits. No concerns for any surgical or infectious causes. Could be viral in nature. Please drink fluids to prevent dehydration. 2. You can alternate Tylenol and ibuprofen as needed for pain and fever management. 3. We encourage you to follow up with your primary care provider and/or recommended specialist in the next few days for re-evaluation and further care/management. 4. If your symptoms should worsen, new symptoms develop or any of the signs and symptoms we discussed should arise please return to the emergency room or call 911 (if needed). Definitive disposition and diagnosis as appropriate pending reevaluation and review of above. Right Abdomen Pain Score (Numeric/FACES): 8 - Related Data Allergies Allergy/AdvReac Type Severity Reaction Status Date / Time ketorolac [From Toradol] Allergy Nausea and Verified 05/13/20 10:41 Vomiting ketorolac tromethamine Allergy Swelling Verified 05/13/20 10:41 [From Toradol] naproxen [From Anaprox] Allergy Anxiety Verified 05/13/20 10:41 pregabalin [From Lyrica] Allergy Swelling Verified 05/13/20 10:41 prochlorperazine Allergy Nausea and Verified 05/13/20 10:41 [From Compazine] Vomiting tramadol Allergy Swelling Verified 05/13/20 10:41 zolmitriptan [From Zomig] Allergy Chest Verified 05/13/20 10:41 Tightness codeine AdvReac Vomiting Verified 05/13/20 10:41 droperidol [From Inapsine] AdvReac Irritabilit Verified 05/13/20 10:41 y prochlorperazine edisylate AdvReac Vomiting Verified 05/13/20 10:41 [From Compazine] prochlorperazine maleate AdvReac Vomiting Verified 05/13/20 10:41 [From Compazine] zomeg Allergy Chest Uncoded 05/13/20 10:41 Presssure Home Meds: Home Meds Citalopram Hydrobromide [Celexa] 40 mg PO DAILY 04/04/15 [History] Rosuvastatin [Crestor] 1 tab PO DAILY 03/25/18 [History] Acetaminophen/HYDROcodone [[place] 325-5 MG] 1 tab PO Q6H PRN #10 tablet 12/15/18 [Rx] Phenazopyridine HCl [Pyridium] 200 mg PO TID 2 Days #6 tablet 05/13/20 [Rx] Sulfamethoxazole/Trimethoprim [Bactrim Ds Tablet] 1 each PO BID 7 Days #14 tablet 05/13/20 [Rx] Ondansetron [Zofran ODT] 4 mg PO Q6H PRN #8 tab.dis 05/02/21 [Rx] Past Medical History Cardiovascular History: Reports: High Cholesterol Respiratory History: Reports: Bronchitis, Recurrent Gastrointestinal History: Reports: PUD Other Gastrointestinal History: Ulcers, incarcerated hernia Genitourinary History: Reports: None HEADWAITRESS History: Reports: Other HEADWAITRESS History: Musculoskeletal History: Reports: Back Pain, Chronic Other Musculoskeletal History: degenerative disc disease, carpal tunnel Neurological History: Reports: Headaches, Chronic, Migraines Psychiatric History: Reports: Anxiety, Depression Endocrine/Metabolic History: Reports: Diabetes, Type II, Obesity/BMI 30+, Other (See Below) Other Endocrine/Metabolic History: Diet Controlled per maile's report Hematologic History: Reports: None Other Hematologic History: elevated WBC count Immunologic History: Reports: None Oncologic (Cancer) History: Reports: None Dermatologic History: Reports: None - Infectious Disease History Infectious Disease History: Reports: None - Past Surgical History Head Surgeries/Procedures: Reports: None HEENT Surgical History: Reports: Oral Surgery GI Surgical History: Reports: Cholecystectomy Female Surgical History: Reports: Section, Hysterectomy, Oophorectomy Social & Family History - Family History Family Medical History: No Pertinent Family History - Caffeine Use Caffeine Use: Reports: None - Living Situation & Occupation Living situation: Reports: , with Spouse Occupation: Unemployed ED ROS GENERAL - Review of Systems Review Of Systems: Comprehensive ROS is negative, except as noted in HPI. ED EXAM, GI/ABD - Physical Exam Exam: See Below (See dictation) Course - Vital Signs Last Recorded V/S: Last Vital Signs Temp 98.1 F 05/02/21 15:32 Pulse 82 05/02/21 15:32 Resp 18 05/02/21 15:32 BP 128/73 05/02/21 15:32 Pulse Ox 97 05/02/21 15:32 - Orders/Labs/Meds Labs: Laboratory Tests 05/02/21 05/02/21 05/02/21 Range/Units 14:50 15:35 15:35 WBC 8.72 (4.0-11.0) K/uL RBC 5.14 (4.30-5.90) M/uL Hgb 16.2 H (12.0-16.0) g/dL Hct 46.1 H (36.0-46.0) % MCV 89.7 (80.0-98.0) fL MCH 31.5 (27.0-32.0) pg MCHC 35.1 (31.0-37.0) g/dL RDW Std Deviation 42.1 (28.0-62.0) fl RDW Coeff of Delphine 13 (11.0-15.0) % Plt Count 169 (150-400) K/uL MPV 11.50 (7.40-12.00) fL Neut % (Auto) 49.5 (48.0-80.0) % Lymph % (Auto) 40.4 H (16.0-40.0) % [place] % (Auto) 7.9 (0.0-15.0) % Eos % (Auto) 1.4 (0.0-7.0) % Baso % (Auto) 0.8 (0.0-1.5) % Neut # (Auto) 4.3 (1.4-5.7) K/uL Lymph # (Auto) 3.5 H (0.6-2.4) K/uL [place] # (Auto) 0.7 (0.0-0.8) K/uL Eos # (Auto) 0.1 (0.0-0.7) K/uL Baso # (Auto) 0.1 (0.0-0.1) K/uL Nucleated RBC % 0.0 /100WBC Nucleated RBCs # 0 K/uL Sodium 139 (136-145) mmol/L Potassium 3.9 (3.5-5.1) mmol/L Chloride 102 (98-107) mmol/L Carbon Dioxide 25.5 (21.0-32.0) mmol/L BUN 5 L (7.0-18.0) mg/dL Creatinine 0.8 (0.6-1.0) mg/dL Est Cr Clr Drug Dosing 71.14 mL/min Estimated GFR (MDRD) > 60.0 ml/min Glucose 84 (74-106) mg/dL Calcium 9.3 (8.5-10.1) mg/dL Total Bilirubin 0.5 (0.2-1.0) mg/dL AST 20 (15-37) IU/L ALT 27 (14-63) IU/L Alkaline Phosphatase 77 (46-116) U/L Total Protein 7.4 (6.4-8.2) g/dL Albumin 4.0 (3.4-5.0) g/dL Globulin 3.4 (2.6-4.0) g/dL Albumin/Globulin Ratio 1.2 (0.9-1.6) Lipase 96 (73-393) U/L Urine Color YELLOW Urine Appearance CLEAR Urine pH 7.0 (5.0-8.0) Ur Specific [place] <= 1.005 (1.001-1.035) Urine Protein NEGATIVE (NEGATIVE) mg/dL Urine Glucose (UA) NEGATIVE (NEGATIVE) mg/dL Urine Ketones NEGATIVE (NEGATIVE) mg/dL Urine Occult Blood NEGATIVE (NEGATIVE) Urine Nitrite NEGATIVE (NEGATIVE) Urine Bilirubin NEGATIVE (NEGATIVE) Urine Urobilinogen 0.2 (<2.0) EU/dL Ur Leukocyte Esterase NEGATIVE (NEGATIVE) Meds: Medications Discontinued Medications Generic Name Dose Route Start Last Admin Trade Name Freq PRN Reason Stop Dose Admin Sodium Chloride 1,000 mls @ 999 mls/hr 05/02/21 14:23 05/02/21 15:18 Normal Saline IV 05/02/21 15:23 999 mls/hr STAT ONE Administration Sodium Chloride 1,000 mls @ 999 mls/hr 05/02/21 14:48 05/02/21 15:18 Normal Saline IV 05/02/21 15:48 999 mls/hr STAT ONE Administration Iopamidol 100 ml 05/02/21 16:47 05/02/21 16:47 Iopamidol 755 Mg/Ml 500 Ml Multipack Bottle IVPUSH 05/02/21 16:48 100 ml ONETIME STA Administration Morphine Sulfate 4 mg 05/02/21 15:05 05/02/21 15:18 Morphine 4 Mg/Ml Syringe IVPUSH 05/02/21 15:06 4 mg ONETIME ONE Administration Ondansetron HCl 4 mg 05/02/21 15:05 05/02/21 15:18 Ondansetron 4 Mg/2 Ml Sdv IVPUSH 05/02/21 15:06 4 mg ONETIME ONE Administration Departure - Departure Time of Disposition: 17:57 Disposition: Home, Self-Care 01 Clinical Impression: Abdominal pain Qualifiers: Abdominal location: right upper quadrant Qualified Code(s): R10.11 - Right upper quadrant pain - Discharge Information Prescriptions: Ondansetron [Zofran ODT] 4 mg PO Q6H PRN #8 tab.dis PRN Reason: Nausea Instructions: Abdominal Pain, Adult, [id number] Referrals: Ladi Gallagher PA-C [Primary Care Provider] - Forms: ED Department Discharge Additional Instructions: The following information is given to patients seen in the emergency department who are being discharged to home. This information is to outline your options for follow-up care. We provide all patients seen in our emergency department with a follow-up referral. The need for follow-up, as well as the timing and circumstances, are variable depending upon the specifics of your emergency department visit. If you don't have a primary care physician on staff, we will provide you with a referral. We always advise you to contact your personal physician following an emergency department visit to inform them of the circumstance of the visit and for follow-up with them and/or the need for any referrals to a consulting specialist. The emergency department will also refer you to a specialist when appropriate. This referral assures that you have the opportunity for follow-up care with a specialist. All of these measure are taken in an effort to provide you with optimal care, which includes your follow-up. Under all circumstances we always encourage you to contact your private physician who remains a resource for coordinating your care. When calling for follow-up care, please make the office aware that this follow-up is from your recent emergency room visit. If for any reason you are refused follow-up, please contact the [facility] Emergency Department at and asked to speak to the emergency department charge nurse. [facility] [address] [place] [address] [id number] [address] [address] Thank you for choosing the [facility] emergency department in [place] for your medical needs today. It was a pleasure caring for you. Today you were seen in the emergency department for abdominal pain. 1. You were evaluated today on an emergent basis. Your lab work and CT of the abdomen and pelvis are within normal limits. No concerns for any surgical or infectious causes. Could be viral in nature. Please drink fluids to prevent dehydration. Zofran as needed for nausea management. 2. You can alternate Tylenol and ibuprofen as needed for pain and fever management. 3. We encourage you to follow up with your primary care provider and/or recommended specialist in the next few days for re-evaluation and further care/management. 4. If your symptoms should worsen, new symptoms develop or any of the signs and symptoms we discussed should arise please return to the emergency room or call 911 (if needed). Sepsis Event Note (ED) - Focused Exam Vital Signs: Vital Signs Temp Pulse Resp BP Pulse Ox 05/02/21 15:32 98.1 F 82 18 128/73 97 05/02/21 14:34 97.6 F 76 20 156/99 H 100
[2021-05-02] MEDS ORDERED: Sodium Chloride 0.9% 1,000 ML IV ONE ×2 (14:23→14:48)
[2021-05-02] MEDS ORDERED: Ondansetron 4 MG/2 ML SDV IVPUSH ONE (15:05)
[2021-05-02] MEDS ORDERED: Morphine 4 MG/ML Syringe IVPUSH ONE (15:05)
[2021-05-02 16:21] LABS: BLOOD UREA NITROGEN,BUN 5 mg/dL (7.0-18.0); CARBON DIOXIDE,CO2 25.5 mmol/L (21.0-32.0); CHLORIDE,CL 102 mmol/L (98-107); GLUCOSE RANDOM 84 mg/dL (74-106); LIPASE 96 U/L (73-393); POTASSIUM,K 3.9 mmol/L (3.5-5.1); SODIUM,NA 139 mmol/L (136-145)
[2021-05-02] MEDS ORDERED: Iopamidol 755 MG/ML 500 ML Multipack Bottle IVPUSH STA (16:47)
--- NOTE | 2021-05-02 17:57 | CT ---
INDICATION: Right upper quadrant and right lower quadrant pain. TECHNIQUE: CT of the abdomen and pelvis with 100 cc Isovue 370 IV contrast. Coronal and sagittal reconstructions. COMPARISON: None. FINDINGS: Mild diffuse hepatic steatosis. Cholecystectomy. Mild intra and extrahepatic bile duct dilation likely related to post cholecystectomy state. The spleen, pancreas, and adrenal glands are negative. Splenule. Hepatic and portal veins are patent. Symmetric enhancement of the kidneys. No hydronephrosis or ureteral dilation. No obstructing urinary calculi. The bladder is normal in appearance. Hysterectomy. The left ovary is within normal limits. The right ovary is not identified. No bowel dilation. The colon is diffusely decompressed. No bowel wall thickening. Mild sigmoid diverticulosis without evidence of diverticulitis. Negative appendix. No intraperitoneal free air or fluid. Small fat containing right inguinal hernia. Aortoiliac vascular calcifications. No lymphadenopathy. The bones are unremarkable. The lung bases are clear. IMPRESSION: 1. No acute findings in the abdomen or pelvis. 2. Mild diffuse hepatic steatosis. 3. Mild biliary dilation likely due to post cholecystectomy state. Please note that all CT scans at this facility use dose modulation, iterative reconstruction, and/or weight-based dosing when appropriate to reduce radiation dose to as low as reasonably achievable. Dictated by Lakeshia Muir MD @ 05/02/2021 5:55:18 PM (Electronically Signed)
[2021-05-02 20:24] VITALS: BP 127/69; PULSE 76
== END 2021-05-02 18:15 | disposition home or self-care (01) ==
LOC: MW.ED 12:42
DX: R10.11 Right upper quadrant pain (principal); E78.00 Pure hypercholesterolemia, unspecified; E11.9 Type 2 diabetes mellitus without complications; E66.9 Obesity, unspecified; Z68.33 Body mass index [BMI] 33.0-33.9, adult; Z88.5 Allergy status to narcotic agent; Z88.8 Allergy status to other drugs, medicaments and biological substances; Z79.899 Other long term (current) drug therapy
CPT/HCPCS: 36415; 74177; 80053; 81003; 83690; 85025; 96374; 96375; 99284; J2270; J2405; J7030; Q9967

== ENCOUNTER 2021-10-11 19:36 | Emergency (ER) | payer MEDICARE, OTHER ==
[2021-10-11] MEDS ORDERED: Midazolam 1 MG/ML 2 ML SDV IVPUSH ONE (20:05)
[2021-10-11 20:19] LABS: BLOOD UREA NITROGEN,BUN 5 mg/dL (7.0-18.0); CARBON DIOXIDE,CO2 26.8 mmol/L (21.0-32.0); CHLORIDE,CL 101 mmol/L (98-107); GLUCOSE RANDOM 118 mg/dL (74-106); POTASSIUM,K 3.3 mmol/L (3.5-5.1); SODIUM,NA 139 mmol/L (136-145)
[2021-10-11] MEDS ORDERED: Acetaminophen 500 MG Tab PO ONE (20:29)
[2021-10-11 20:34] LABS: CORONAVIRUS COVID-19 NAA NEGATIVE (NEGATIVE); INFLUENZA A NAA NEGATIVE (NEGATIVE); INFLUENZA B NAA NEGATIVE (NEGATIVE)
[2021-10-11] MEDS ORDERED: Magnesium Oxide 400 MG Tab PO ONE (20:34)
[2021-10-11] MEDS ORDERED: Potassium Chloride 10% 20 MEQ/15 ML Soln 30 ML UD Cup PO ONE (20:34)
[2021-10-11] MEDS ORDERED: Iopamidol 755 MG/ML 500 ML Multipack Bottle IVPUSH STA (21:04)
[2021-10-11 23:47] VITALS: BP 112/61; PULSE 62
== END 2021-10-11 23:44 | disposition home or self-care (01) ==
LOC: MW.ED 19:36
DX: I77.819 Aortic ectasia, unspecified site (principal); R51.9 Headache, unspecified; E78.00 Pure hypercholesterolemia, unspecified; E11.9 Type 2 diabetes mellitus without complications; E66.9 Obesity, unspecified; Z68.33 Body mass index [BMI] 33.0-33.9, adult; Z88.6 Allergy status to analgesic agent; Z88.5 Allergy status to narcotic agent; Z88.8 Allergy status to other drugs, medicaments and biological substances; Z20.822 Contact with and (suspected) exposure to COVID-19
CPT/HCPCS: 0240U; 36415; 71045; 71275; 74174; 80048; 83735; 84132; 84484; 85025; 93005; 96374; 99285; A9270; J2250; Q9967; 93010; 99283

== ENCOUNTER 2021-12-20 15:45 | Inpatient (IN) | payer MEDICARE, OTHER ==
[2021-12-20] MEDS ORDERED: Sodium Chloride 0.9% 10 ML Syringe FLUSH PRN (15:55)
[2021-12-20] MEDS ORDERED: Sodium Chloride 0.9% 2.5 ML Syringe FLUSH PRN (15:55)
[2021-12-20] MEDS ORDERED: Ondansetron 4 MG/2 ML SDV IVPUSH ONE (16:41)
[2021-12-20] MEDS ORDERED: fentaNYL 50 MCG/ML SDV IVPUSH ONE ×2 (16:41→19:19)
[2021-12-20 16:46] LABS: BLOOD UREA NITROGEN,BUN 5 mg/dL (7.0-18.0); CARBON DIOXIDE,CO2 24.4 mmol/L (21.0-32.0); CHLORIDE,CL 105 mmol/L (98-107); GLUCOSE RANDOM 116 mg/dL (74-106); POTASSIUM,K 3.2 mmol/L (3.5-5.1); SODIUM,NA 138 mmol/L (136-145)
[2021-12-20] MEDS ORDERED: Furosemide 40 MG/4 ML VIAL IVPUSH ONE (17:10)
[2021-12-20] MEDS ORDERED: Heparin Sodium/0.45% NaCl 500 ML IV SCH (17:15)
[2021-12-20] MEDS ORDERED: Iopamidol 755 MG/ML 500 ML Multipack Bottle IVPUSH STA (17:45)
[2021-12-20] MEDS ORDERED: Warfarin 5 MG Tab PO SCH (19:15)
[2021-12-20] MEDS ORDERED: Albuterol/Ipratropium 3.0-0.5 MG/3 ML Neb Soln NEB PRN (21:11)
[2021-12-20] MEDS: Acetaminophen/oxyCODONE 325-5 MG Tab PO SCH (22:27)
[2021-12-20] MEDS: Amiodarone 200 MG Tab PO SCH (22:32)
[2021-12-20] MEDS ORDERED: Ondansetron 4 MG/2 ML SDV IVPUSH PRN (23:00)
[2021-12-20] MEDS ORDERED: Warfarin 2 MG Tab PO ONE (23:45)
[2021-12-21] MEDS: Acetaminophen/oxyCODONE 325-5 MG Tab PO SCH ×3 (00:03→08:00)
[2021-12-21] MEDS: Nystatin Topical Powder 15 GM Bottle TOP SCH ×3 (01:43→16:30)
[2021-12-21] MEDS: Morphine 2 MG/ML SYRINGE IVPUSH PRN ×4 (01:44→13:46)
[2021-12-21] MEDS ORDERED: Heparin Sodium 5,000 Units/ML Vial SUBCUT ONE (04:36)
[2021-12-21 06:18] LABS: BLOOD UREA NITROGEN,BUN 5 mg/dL (7.0-18.0); CARBON DIOXIDE,CO2 26.3 mmol/L (21.0-32.0); CHLORIDE,CL 104 mmol/L (98-107); GLUCOSE RANDOM 105 mg/dL (74-106); POTASSIUM,K 3.1 mmol/L (3.5-5.1); SODIUM,NA 138 mmol/L (136-145)
[2021-12-21] MEDS ORDERED: Furosemide 40 MG/4 ML VIAL IVPUSH SCH (09:00)
[2021-12-21] MEDS ORDERED: Ascorbic Acid 500 MG Tab PO SCH (09:00)
[2021-12-21] MEDS ORDERED: Pantoprazole 40 MG in Sodium Chloride 0.9% 10 ML IVPUSH SCH (09:00)
[2021-12-21] MEDS: Amiodarone 200 MG Tab PO SCH (09:28)
[2021-12-21] MEDS ORDERED: Potassium Chloride 20 MEQ Tab.ER PO ONE (10:07)
[2021-12-21] MEDS ORDERED: Acetaminophen/HYDROcodone 325-10 MG Tab PO PRN ×2 (10:12→10:16)
[2021-12-21] MEDS ORDERED: Warfarin 2 MG Tab PO ONE (14:00)
[2021-12-21] MEDS ORDERED: Morphine 2 MG/ML SYRINGE IVPUSH ONE (15:51)
[2021-12-21 16:33] VITALS: BP 105/56; PULSE 70
[2021-12-21] MEDS ORDERED: LORazepam 2 MG/ML SDV IVPUSH ONE (17:00)
[2021-12-21] MEDS ORDERED: Citalopram 20 MG Tab PO SCH (21:00)
== END 2021-12-21 17:20 | DRG 816 ==
LOC: MW.ED 15:45 → MW.MS 19:45
PROVIDERS: ADMIT Student in an Organized Health Care Education/Training Program; ATTEND Student in an Organized Health Care Education/Training Program
DX: D68.59 Other primary thrombophilia (principal); R06.02 Shortness of breath; T45.516A Underdosing of anticoagulants, initial encounter; I77.810 Thoracic aortic ectasia; M47.812 Spondylosis without myelopathy or radiculopathy, cervical region; K29.70 Gastritis, unspecified, without bleeding; E78.00 Pure hypercholesterolemia, unspecified; Z20.822 Contact with and (suspected) exposure to COVID-19; M54.9 Dorsalgia, unspecified; G89.29 Other chronic pain; E66.9 Obesity, unspecified; F41.9 Anxiety disorder, unspecified; F32.A Depression, unspecified; E11.9 Type 2 diabetes mellitus without complications; K57.90 Diverticulosis of intestine, part unspecified, without perforation or abscess without bleeding; J44.9 Chronic obstructive pulmonary disease, unspecified; M79.7 Fibromyalgia; Z95.2 Presence of prosthetic heart valve; Z88.5 Allergy status to narcotic agent; Z88.6 Allergy status to analgesic agent; Z88.8 Allergy status to other drugs, medicaments and biological substances; Z79.899 Other long term (current) drug therapy; Z79.01 Long term (current) use of anticoagulants; Z90.49 Acquired absence of other specified parts of digestive tract; Z90.710 Acquired absence of both cervix and uterus; Z68.32 Body mass index [BMI] 32.0-32.9, adult; Z95.4 Presence of other heart-valve replacement; Z87.11 Personal history of peptic ulcer disease
CPT/HCPCS: 36415; 71045; 71275; 80053; 83880; 84484; 85025; 85379; 85610 ×2; 85730; J1644; J1940; J2405; J3010 ×2; J3490; Q9967; U0002; 76000; 80048; 82947; 83735; 84100; 93005; 93306; 96365; 96366; 96375; 96376; 99285-25; A9270-GY; C9113; J2060; J2270

== ENCOUNTER 2022-01-08 14:28 | Emergency (ER) | payer MEDICARE, OTHER ==
[2022-01-08] MEDS ORDERED: Sodium Chloride 0.9% 2.5 ML Syringe FLUSH PRN (16:22)
[2022-01-08] MEDS ORDERED: Sodium Chloride 0.9% 10 ML Syringe FLUSH PRN (16:22)
== END 2022-01-08 17:35 | disposition left against medical advice (07) ==
LOC: MW.ED 14:28
DX: R06.02 Shortness of breath (principal); Z53.21 Procedure and treatment not carried out due to patient leaving prior to being seen by health care provider

== ENCOUNTER 2022-06-02 20:57 | Emergency (ER) | payer MEDICARE, OTHER ==
[~2022-06-02 20:57] MED LIST: Ketorolac 30 MG/ML SDV IVPUSH ONE; Morphine 4 MG/ML Syringe IVPUSH ONE; Ondansetron 4 MG/2 ML SDV IVPUSH ONE
[2022-06-02] MEDS ORDERED: Iopamidol 755 Mg/ML 100 ML Bottle IV ONE (20:58)
[2022-06-02] MEDS ORDERED: diphenhydrAMINE 50 MG Cap PO ONE (21:34)
== END 2022-06-02 21:48 ==
LOC: MW.ED 20:57
DX: U07.1 COVID-19 (principal); R07.9 Chest pain, unspecified; Z88.5 Allergy status to narcotic agent; Z88.8 Allergy status to other drugs, medicaments and biological substances
CPT/HCPCS: 71045; 71275; 74174; 99285; A9270; J1885; J2270; J2405; Q9967; 96374; 96375

== ENCOUNTER 2022-06-18 17:19 | Emergency (ER) | payer MEDICARE, OTHER ==
[2022-06-18] MEDS ORDERED: Sodium Chloride 0.9% 10 ML Syringe FLUSH PRN (17:39)
[2022-06-18] MEDS ORDERED: Sodium Chloride 0.9% 2.5 ML Syringe FLUSH PRN (17:39)
[2022-06-18 18:25] LABS: CORONAVIRUS COVID-19 NAA NEGATIVE (NEGATIVE); INFLUENZA A NAA NEGATIVE (NEGATIVE); INFLUENZA B NAA NEGATIVE (NEGATIVE)
[2022-06-18 18:55] LABS: CARBON DIOXIDE,CO2 26.4 mmol/L (21.0-32.0); POTASSIUM,K 3.7 mmol/L (3.5-5.1)
[2022-06-18] MEDS ORDERED: Iopamidol 755 MG/ML 500 ML Multipack Bottle IVPUSH STA (19:53)
[2022-06-18] MEDS ORDERED: Ondansetron 4 MG/2 ML SDV IVPUSH ONE (20:19)
[2022-06-18] MEDS ORDERED: Morphine 4 MG/ML Syringe IVPUSH ONE (20:20)
[2022-06-18 21:35] VITALS: BP 158/71; PULSE 84
== END 2022-06-18 21:36 | disposition home or self-care (01) ==
LOC: MW.ED 17:19
DX: R05.9 Cough, unspecified (principal); E11.9 Type 2 diabetes mellitus without complications; E66.9 Obesity, unspecified; Z68.32 Body mass index [BMI] 32.0-32.9, adult; Z88.1 Allergy status to other antibiotic agents; Z88.8 Allergy status to other drugs, medicaments and biological substances; Z88.5 Allergy status to narcotic agent; Z79.899 Other long term (current) drug therapy; Z79.01 Long term (current) use of anticoagulants; Z90.49 Acquired absence of other specified parts of digestive tract; Z90.710 Acquired absence of both cervix and uterus; Z20.822 Contact with and (suspected) exposure to COVID-19
CPT/HCPCS: 0240U; 36415; 71045; 71275; 80053; 84484; 85025; 85379; 85610; 96374; 96375; 99284; J2270; J2405; J3490; Q9967; 93010; 99285

== ENCOUNTER 2022-09-12 16:49 | Emergency (ER) | payer MEDICARE, OTHER ==
[2022-09-12] MEDS ORDERED: Ondansetron 4 MG/2 ML SDV IVPUSH ONE ×2 (17:49→18:58)
[2022-09-12] MEDS ORDERED: Sodium Chloride 0.9% 1,000 ML IV ONE (17:49)
[2022-09-12] MEDS: Sodium Chloride 0.9% 10 ML Syringe FLUSH PRN ×2 (18:03→19:08)
[2022-09-12] MEDS: Sodium Chloride 0.9% 2.5 ML Syringe FLUSH PRN ×2 (18:03→19:08)
[2022-09-12 18:21] LABS: CARBON DIOXIDE,CO2 28.5 mmol/L (21.0-32.0); POTASSIUM,K 3.9 mmol/L (3.5-5.1)
[2022-09-12] MEDS ORDERED: Iopamidol 755 MG/ML 500 ML Multipack Bottle IVPUSH STA (18:36)
[2022-09-12] MEDS ORDERED: fentaNYL 50 MCG/ML SDV IVPUSH ONE (18:58)
[2022-09-12] MEDS ORDERED: Morphine 4 MG/ML Syringe IVPUSH ONE (20:07)
[2022-09-12 20:25] VITALS: BP 103/59; PULSE 68
== END 2022-09-12 20:24 | disposition home or self-care (01) ==
LOC: MW.ED 16:49
DX: R07.89 Other chest pain (principal); J44.9 Chronic obstructive pulmonary disease, unspecified; E11.9 Type 2 diabetes mellitus without complications; E78.00 Pure hypercholesterolemia, unspecified; F17.210 Nicotine dependence, cigarettes, uncomplicated; E66.9 Obesity, unspecified; Z68.32 Body mass index [BMI] 32.0-32.9, adult; Z88.5 Allergy status to narcotic agent; Z88.8 Allergy status to other drugs, medicaments and biological substances; Z79.01 Long term (current) use of anticoagulants; Z79.899 Other long term (current) drug therapy
CPT/HCPCS: 36415; 71275; 80053; 81001; 83605; 83690; 83735; 84443; 84484; 85025; 85610; 85730; 93005; 96361; 96374; 96375; 99285; J2270; J2405; J3010; J3490; J7030; Q9967; 93010; 99284

== ENCOUNTER 2023-01-09 15:56 | Inpatient (IN) | payer MEDICARE, OTHER ==
[2023-01-09] MEDS ORDERED: Lactated Ringers 1,000 ML IV ONE ×2 (16:14→17:33)
[2023-01-09] MEDS ORDERED: Ondansetron 4 MG/2 ML SDV IVPUSH ONE (16:15)
[2023-01-09] MEDS ORDERED: HYDROmorphone 1 MG/ML Syringe IVPUSH ONE (16:22)
[2023-01-09 16:32] LABS: BASOPHILS ABSOLUTE AUTO 0.1 K/uL (0.0-0.1); BASOPHILS PERCENT AUTO 0.7 % (0.0-1.5); EOSINOPHILS ABSOLUTE AUTO 0.1 K/uL (0.0-0.7); EOSINOPHILS PERCENT AUTO 1.1 % (0.0-7.0); HEMATOCRIT 42.9 % (36.0-46.0); LYMPHOCYTES ABSOLUTE AUTO 3.7 K/uL (0.6-2.4); LYMPHOCYTES PERCENT AUTO 45.3 % (16.0-40.0); MEAN CORPUSCULAR HEMOGLOBIN 30.4 pg (27.0-32.0); MEAN CORPUSCULAR VOLUME 86.8 fL (80.0-98.0); MONOCYTES ABSOLUTE AUTO 0.8 K/uL (0.0-0.8); MONOCYTES PERCENT AUTO 9.7 % (0.0-15.0); NEUTROPHILS ABSOLUTE AUTO 3.5 K/uL (1.4-5.7); NEUTROPHILS PERCENT AUTO 43.2 % (48.0-80.0); NRBC ABSOLUTE 0 K/uL; PLATELET COUNT,PLT 173 K/uL (150-400); RED BLOOD CELL COUNT 4.94 M/uL (4.30-5.90); WHITE BLOOD CELL COUNT,WBC 8.21 K/uL (4.0-11.0)
[2023-01-09 16:52] LABS: ALBUMIN 3.7 g/dL (3.4-5.0); BILIRUBIN TOTAL 0.4 mg/dL (0.2-1.0); CALCIUM 9.1 mg/dL (8.5-10.1); CARBON DIOXIDE,CO2 27.6 mmol/L (21.0-32.0); EST CRCL DRUG DOSING (CG) 58.12 mL/min; POTASSIUM,K 3.6 mmol/L (3.5-5.1); PROTEIN TOTAL,TP 7.4 g/dL (6.4-8.2)
[2023-01-09 16:53] LABS: INR 3.72 (0.86-1.11)
[2023-01-09] MEDS ORDERED: fentaNYL 50 MCG/ML SDV IVPUSH ONE (17:04)
[2023-01-09] MEDS ORDERED: Polyethylene Glycol 3350 Powder 17 GM Packet PO PRN (19:11)
[2023-01-09] MEDS ORDERED: Ondansetron 4 MG Tab.DIS PO PRN (19:11)
[2023-01-09] MEDS: Nicotine 14 MG/24 Hr Patch TRDERM SCH (20:23)
[2023-01-09] MEDS: Lactated Ringers 1,000 ML IV SCH (20:24)
[2023-01-09] MEDS: fentaNYL 50 MCG/ML SDV IVPUSH PRN (21:09)
[2023-01-10] MEDS: fentaNYL 50 MCG/ML SDV IVPUSH PRN ×7 (00:16→23:44)
[2023-01-10] MEDS: Lactated Ringers 1,000 ML IV SCH ×4 (03:30→23:39)
[2023-01-10 05:50] LABS: BASOPHILS PERCENT AUTO 0.6 % (0.0-1.5); EOSINOPHILS ABSOLUTE AUTO 0.1 K/uL (0.0-0.7); EOSINOPHILS PERCENT AUTO 2.2 % (0.0-7.0); HEMATOCRIT 39.6 % (36.0-46.0); HEMOGLOBIN 13.3 g/dL (12.0-16.0); LYMPHOCYTES ABSOLUTE AUTO 1.1 K/uL (0.6-2.4); LYMPHOCYTES PERCENT AUTO 29.4 % (16.0-40.0); MEAN CORPUSCULAR HEMOGLOBIN 29.6 pg (27.0-32.0); MEAN CORPUSCULAR HGB CONC 33.6 g/dL (31.0-37.0); MONOCYTES ABSOLUTE AUTO 0.4 K/uL (0.0-0.8); MONOCYTES PERCENT AUTO 10.1 % (0.0-15.0); NEUTROPHILS ABSOLUTE AUTO 2.1 K/uL (1.4-5.7); NEUTROPHILS PERCENT AUTO 57.7 % (48.0-80.0); NRBC ABSOLUTE 0 K/uL; PLATELET COUNT,PLT 139 K/uL (150-400); WHITE BLOOD CELL COUNT,WBC 3.57 K/uL (4.0-11.0)
[2023-01-10 06:14] LABS: INR 3.68 (0.86-1.11)
[2023-01-10 06:23] LABS: ALBUMIN 2.9 g/dL (3.4-5.0); BILIRUBIN TOTAL 0.8 mg/dL (0.2-1.0); CALCIUM 8.4 mg/dL (8.5-10.1); CARBON DIOXIDE,CO2 29.7 mmol/L (21.0-32.0); CREATININE 0.9 mg/dL (0.6-1.0); EST CRCL DRUG DOSING (CG) 64.58 mL/min; MAGNESIUM 1.7 mg/dL (1.8-2.4); POTASSIUM,K 3.8 mmol/L (3.5-5.1); PROTEIN TOTAL,TP 5.9 g/dL (6.4-8.2)
[2023-01-10] MEDS: Citalopram 20 MG Tab PO SCH (08:00)
[2023-01-10] MEDS: oxyCODONE 5 MG Tab PO PRN ×2 (10:05→18:11)
[2023-01-10] MEDS: Nicotine 14 MG/24 Hr Patch TRDERM SCH (20:38)
[2023-01-11] MEDS: fentaNYL 50 MCG/ML SDV IVPUSH PRN ×2 (04:54→08:30)
[2023-01-11] MEDS: Lactated Ringers 1,000 ML IV SCH (05:57)
[2023-01-11 06:10] LABS: BASOPHILS PERCENT AUTO 0.8 % (0.0-1.5); EOSINOPHILS ABSOLUTE AUTO 0.1 K/uL (0.0-0.7); EOSINOPHILS PERCENT AUTO 2.8 % (0.0-7.0); HEMATOCRIT 39.9 % (36.0-46.0); HEMOGLOBIN 13.5 g/dL (12.0-16.0); LYMPHOCYTES ABSOLUTE AUTO 1.5 K/uL (0.6-2.4); LYMPHOCYTES PERCENT AUTO 38.8 % (16.0-40.0); MEAN CORPUSCULAR HEMOGLOBIN 29.9 pg (27.0-32.0); MEAN CORPUSCULAR HGB CONC 33.8 g/dL (31.0-37.0); MEAN CORPUSCULAR VOLUME 88.3 fL (80.0-98.0); MONOCYTES ABSOLUTE AUTO 0.4 K/uL (0.0-0.8); MONOCYTES PERCENT AUTO 8.9 % (0.0-15.0); NEUTROPHILS ABSOLUTE AUTO 1.9 K/uL (1.4-5.7); NEUTROPHILS PERCENT AUTO 48.7 % (48.0-80.0); NRBC ABSOLUTE 0 K/uL; PLATELET COUNT,PLT 142 K/uL (150-400); RED BLOOD CELL COUNT 4.52 M/uL (4.30-5.90); WHITE BLOOD CELL COUNT,WBC 3.94 K/uL (4.0-11.0)
[2023-01-11 06:40] LABS: INR 2.58 (0.86-1.11)
[2023-01-11 06:43] LABS: A/G RATIO 0.9 (0.9-1.6); ALBUMIN 2.9 g/dL (3.4-5.0); CALCIUM 8.6 mg/dL (8.5-10.1); CREATININE 0.8 mg/dL (0.6-1.0); EST CRCL DRUG DOSING (CG) 72.65 mL/min; POTASSIUM,K 3.8 mmol/L (3.5-5.1)
[2023-01-11] MEDS: Citalopram 20 MG Tab PO SCH (08:30)
[2023-01-11] MEDS ORDERED: Torsemide 20 MG Tab PO SCH (09:00)
[2023-01-11] MEDS: oxyCODONE 5 MG Tab PO PRN (09:48)
[2023-01-11] MEDS ORDERED: Warfarin 5 MG Tab ONE (11:35)
[2023-01-11 11:39] VITALS: BP 127/78; PULSE 69
[2023-01-11] MEDS ORDERED: Warfarin Sliding Scale SCH (14:00)
[2023-01-11] MEDS ORDERED: Warfarin 5 MG Tab PO SCH (14:00)
[2023-01-12 10:07] LABS: HBSAG SCREEN Negative (Negative); HCV AB Non Reactive (Non Reactive); HEP A AB, IGM Negative (Negative); HEP B CORE AB, IGM Negative (Negative)
== END 2023-01-11 11:55 | disposition home or self-care (01) | DRG 440 ==
LOC: MW.ED 15:56 → MW.MS 17:32 → OBSVTOIN 17:32 → MW.MS 01-10 12:58
PROVIDERS: ADMIT Internal Medicine; ATTEND Internal Medicine
DX: K85.90 Acute pancreatitis without necrosis or infection, unspecified (principal); R79.1 Abnormal coagulation profile; E11.9 Type 2 diabetes mellitus without complications; R74.01 Elevation of levels of liver transaminase levels; I50.9 Heart failure, unspecified; F41.9 Anxiety disorder, unspecified; F17.210 Nicotine dependence, cigarettes, uncomplicated; F32.A Depression, unspecified; E86.0 Dehydration; F12.90 Cannabis use, unspecified, uncomplicated; Z79.01 Long term (current) use of anticoagulants; Z79.1 Long term (current) use of non-steroidal anti-inflammatories (NSAID); Z79.899 Other long term (current) drug therapy; Z88.5 Allergy status to narcotic agent; Z88.6 Allergy status to analgesic agent; Z88.8 Allergy status to other drugs, medicaments and biological substances; Z90.710 Acquired absence of both cervix and uterus; Z90.722 Acquired absence of ovaries, bilateral; Z98.890 Other specified postprocedural states; Z95.2 Presence of prosthetic heart valve; Z90.49 Acquired absence of other specified parts of digestive tract
CPT/HCPCS: 36415; 80053; 83690; 85025; 85610; 96361; 96374; 96375; 99285; J1170; J2405; J3010; J7120; 71260; 71260-26; 74177; 74177-26; 76705; 76705-26; 80074; 82947; 83735; 84478; 86140; 99213; A9270-GY; Q9967

== ENCOUNTER 2023-01-15 10:27 | Emergency (ER) | payer MEDICARE, OTHER ==
[2023-01-15] MEDS ORDERED: Sodium Chloride 0.9% 1,000 ML IV ONE (12:12)
[2023-01-15] MEDS ORDERED: Metoclopramide 10 MG/2 ML SDV IVPUSH ONE (12:12)
[2023-01-15 13:15] LABS: BASOPHILS PERCENT AUTO 0.5 % (0.0-1.5); EOSINOPHILS ABSOLUTE AUTO 0.1 K/uL (0.0-0.7); EOSINOPHILS PERCENT AUTO 1.4 % (0.0-7.0); HEMATOCRIT 45.1 % (36.0-46.0); HEMOGLOBIN 15.3 g/dL (12.0-16.0); LYMPHOCYTES ABSOLUTE AUTO 3.3 K/uL (0.6-2.4); LYMPHOCYTES PERCENT AUTO 44.7 % (16.0-40.0); MEAN CORPUSCULAR HGB CONC 33.9 g/dL (31.0-37.0); MEAN CORPUSCULAR VOLUME 88.4 fL (80.0-98.0); MONOCYTES ABSOLUTE AUTO 0.5 K/uL (0.0-0.8); MONOCYTES PERCENT AUTO 6.8 % (0.0-15.0); NEUTROPHILS ABSOLUTE AUTO 3.4 K/uL (1.4-5.7); NEUTROPHILS PERCENT AUTO 46.6 % (48.0-80.0); NRBC ABSOLUTE 0 K/uL; PLATELET COUNT,PLT 175 K/uL (150-400); WHITE BLOOD CELL COUNT,WBC 7.32 K/uL (4.0-11.0)
[2023-01-15 13:43] LABS: CALCIUM 9.4 mg/dL (8.5-10.1); CARBON DIOXIDE,CO2 28.4 mmol/L (21.0-32.0); CREATININE 0.9 mg/dL (0.6-1.0); EST CRCL DRUG DOSING (CG) 64.58 mL/min; POTASSIUM,K 4.2 mmol/L (3.5-5.1)
[2023-01-15 13:50] VITALS: BP 117/58; PULSE 62
== END 2023-01-15 14:00 | disposition home or self-care (01) ==
LOC: MW.ED 10:27
DX: G51.39 Clonic hemifacial spasm, unspecified (principal); R51.9 Headache, unspecified; E11.9 Type 2 diabetes mellitus without complications; F17.210 Nicotine dependence, cigarettes, uncomplicated; Z88.8 Allergy status to other drugs, medicaments and biological substances; Z88.5 Allergy status to narcotic agent; Z79.899 Other long term (current) drug therapy
CPT/HCPCS: 36415; 70450; 80048; 85025; 96361; 96374; 99284; J2765; J7030

== ENCOUNTER 2023-04-16 10:25 | Emergency (ER) | payer MEDICARE, OTHER ==
[2023-04-16] MEDS ORDERED: Sodium Chloride 0.9% 10 ML Syringe FLUSH PRN (11:59)
[2023-04-16] MEDS ORDERED: Sodium Chloride 0.9% 2.5 ML Syringe FLUSH PRN (11:59)
[2023-04-16 13:05] LABS: BASOPHILS ABSOLUTE AUTO 0.1 K/uL (0.0-0.1); BASOPHILS PERCENT AUTO 0.6 % (0.0-1.5); EOSINOPHILS ABSOLUTE AUTO 0.1 K/uL (0.0-0.7); EOSINOPHILS PERCENT AUTO 1.3 % (0.0-7.0); HEMATOCRIT 44.3 % (36.0-46.0); HEMOGLOBIN 15.2 g/dL (12.0-16.0); LYMPHOCYTES ABSOLUTE AUTO 3.2 K/uL (0.6-2.4); LYMPHOCYTES PERCENT AUTO 38.8 % (16.0-40.0); MEAN CORPUSCULAR HEMOGLOBIN 30.5 pg (27.0-32.0); MEAN CORPUSCULAR HGB CONC 34.3 g/dL (31.0-37.0); MEAN CORPUSCULAR VOLUME 88.8 fL (80.0-98.0); MONOCYTES ABSOLUTE AUTO 0.8 K/uL (0.0-0.8); MONOCYTES PERCENT AUTO 9.3 % (0.0-15.0); NEUTROPHILS ABSOLUTE AUTO 4.1 K/uL (1.4-5.7); NRBC ABSOLUTE 0 K/uL; PLATELET COUNT,PLT 195 K/uL (150-400); RED BLOOD CELL COUNT 4.99 M/uL (4.30-5.90); WHITE BLOOD CELL COUNT,WBC 8.29 K/uL (4.0-11.0)
[2023-04-16] MEDS ORDERED: Sodium Chloride 0.9% 1,000 ML IV STA (13:07)
[2023-04-16 13:38] LABS: INR 3.23 (0.86-1.11)
[2023-04-16 13:47] LABS: BILIRUBIN TOTAL 0.5 mg/dL (0.2-1.0); CALCIUM 9.4 mg/dL (8.5-10.1); CARBON DIOXIDE,CO2 30.1 mmol/L (21.0-32.0); CREATININE 0.9 mg/dL (0.6-1.0); EST CRCL DRUG DOSING (CG) 64.58 mL/min; POTASSIUM,K 4.3 mmol/L (3.5-5.1)
[2023-04-16] MEDS ORDERED: Iopamidol 755 MG/ML 500 ML Multipack Bottle IVPUSH ONE (14:44)
[2023-04-16] MEDS ORDERED: fentaNYL 50 MCG/ML SDV IVPUSH STA (15:11)
[2023-04-16 19:00] VITALS: BP 142/56; PULSE 72
== END 2023-04-16 16:47 | disposition home or self-care (01) ==
LOC: MW.ED 10:25
DX: R10.13 Epigastric pain (principal); E11.9 Type 2 diabetes mellitus without complications; R74.8 Abnormal levels of other serum enzymes; Z88.5 Allergy status to narcotic agent; Z88.6 Allergy status to analgesic agent; Z79.01 Long term (current) use of anticoagulants; Z88.8 Allergy status to other drugs, medicaments and biological substances
CPT/HCPCS: 36415; 74177; 80053; 83690; 84484; 85025; 85610; 96361; 96374; 99284; J3010; J3490; J7030; Q9967

== ENCOUNTER 2024-05-06 15:36 | Emergency (ER) | payer MEDICARE ==
[2024-05-06] MEDS ORDERED: Sodium Chloride 0.9% 10 ML Syringe FLUSH PRN (15:48)
[2024-05-06 16:38] LABS: A/G RATIO 1.1 (0.9-1.6); BILIRUBIN TOTAL 0.6 mg/dL (0.2-1.0); CALCIUM 9.5 mg/dL (8.5-10.1); CARBON DIOXIDE,CO2 28.1 mmol/L (21.0-32.0); CREATININE 0.8 mg/dL (0.6-1.0); EST CRCL DRUG DOSING (CG) 71.84 mL/min; POTASSIUM,K 3.7 mmol/L (3.5-5.1); PROTEIN TOTAL,TP 7.6 g/dL (6.4-8.2)
[2024-05-06] MEDS: fentaNYL 50 MCG/ML SDV IVPUSH ONE (16:42)
[2024-05-06] MEDS: Acetaminophen 500 MG Tab PO ONE (16:42)
[2024-05-06] MEDS: Ondansetron 4 MG/2 ML SDV IVPUSH ONE (16:42)
[2024-05-06] MEDS: Pantoprazole 40 MG in Sodium Chloride 0.9% 10 ML IVPUSH ONE (16:42)
[2024-05-06] MEDS: Sodium Chloride 0.9% 1,000 ML IV ONE (16:43)
[2024-05-06 16:50] VITALS: BP 124/83; PULSE 66
[2024-05-06] MEDS: Iopamidol 755 MG/ML 500 ML Multipack Bottle IVPUSH STA (17:01)
[2024-05-06 17:45] LABS: BASOPHILS ABSOLUTE AUTO 0.06 K/uL (0.00-0.20); BASOPHILS PERCENT AUTO 0.8 % (0.0-1.0); EOSINOPHILS ABSOLUTE AUTO 0.13 K/uL (0.00-0.45); EOSINOPHILS PERCENT AUTO 1.8 % (0.0-6.0); HEMATOCRIT 40.3 % (37.0-47.0); HEMOGLOBIN 13.2 g/dL (12.0-16.0); IMMATURE GRAN ABSOLUTE AUTO 0.02 K/uL (0.00-0.05); IMMATURE GRAN PERCENT AUTO 0.3 % (0.0-0.4); LYMPHOCYTES ABSOLUTE AUTO 2.65 K/uL (1.00-4.80); LYMPHOCYTES PERCENT AUTO 37.2 % (24.0-44.0); MEAN CORPUSCULAR HEMOGLOBIN 30.1 pg (28.0-32.0); MEAN CORPUSCULAR HGB CONC 32.8 g/dL (32.0-36.0); MEAN PLATELET VOLUME 12.1 fL (9.4-12.3); MONOCYTES ABSOLUTE AUTO 0.65 K/uL (0.00-0.80); MONOCYTES PERCENT AUTO 9.1 % (0.0-8.0); NEUTROPHILS ABSOLUTE AUTO 3.62 K/uL (1.80-7.70); NEUTROPHILS PERCENT AUTO 50.8 % (41.0-71.0); PLATELET COUNT,PLT 127 K/uL (150-400); RED BLOOD CELL COUNT 4.38 M/uL (4.10-5.30); WHITE BLOOD CELL COUNT,WBC 7.13 K/uL (3.9-11.3)
[2024-05-06 18:15] LABS: INR 1.31 (0.86-1.11)
== END 2024-05-06 19:20 | disposition home or self-care (01) ==
LOC: MW.ED 15:36
DX: R10.13 Epigastric pain (principal); R07.9 Chest pain, unspecified; F17.210 Nicotine dependence, cigarettes, uncomplicated; Z87.19 Personal history of other diseases of the digestive system; E78.00 Pure hypercholesterolemia, unspecified; E11.9 Type 2 diabetes mellitus without complications; Z86.16 Personal history of COVID-19; Z79.899 Other long term (current) drug therapy; Z79.01 Long term (current) use of anticoagulants; Z88.8 Allergy status to other drugs, medicaments and biological substances; Z88.6 Allergy status to analgesic agent; Z88.5 Allergy status to narcotic agent; I10 Essential (primary) hypertension; R74.8 Abnormal levels of other serum enzymes; Z95.2 Presence of prosthetic heart valve
CPT/HCPCS: 36415; 71045; 74177; 80053; 80061; 83605; 83690; 83880; 84484; 85025; 85027; 85610; 93005; 96361; 96374; 96375; 99214; 99285; A9270; J2405; J2470; J3010; J3490; J7030; Q9967; 93010; 99284

== ENCOUNTER 2024-10-06 09:14 | Emergency (ER) | payer MEDICARE ==
[2024-10-06] MEDS ORDERED: Naloxone 0.4 MG/ML SDV IVPUSH PRN ×2 (09:57→10:50)
[2024-10-06] MEDS ORDERED: Sodium Chloride 0.9% 10 ML Syringe FLUSH PRN (09:57)
[2024-10-06] MEDS: fentaNYL 100 MCG/2 ML SDV IVPUSH ONE (10:12)
[2024-10-06] MEDS: Ondansetron 4 MG/2 ML SDV IVPUSH ONE (11:12)
[2024-10-06] MEDS: fentaNYL 50 MCG/ML SDV IVPUSH ONE ×2 (11:12→12:20)
[2024-10-06 11:15] VITALS: PULSE 64
[2024-10-06 13:04] VITALS: BP 146/70
== END 2024-10-06 13:03 | disposition home or self-care (01) ==
LOC: MW.ED 09:14
DX: M54.81 Occipital neuralgia (principal); E78.00 Pure hypercholesterolemia, unspecified; E11.9 Type 2 diabetes mellitus without complications; Z88.8 Allergy status to other drugs, medicaments and biological substances; Z88.5 Allergy status to narcotic agent; Z79.899 Other long term (current) drug therapy; Z86.16 Personal history of COVID-19; Z79.01 Long term (current) use of anticoagulants
CPT/HCPCS: 72125; 96374; 96375; 96376; 99283; J2405; J3010

== ENCOUNTER 2025-06-28 08:56 | Emergency (ER) | payer MEDICARE ==
[2025-06-28 09:25] LABS: BASOPHILS ABSOLUTE AUTO 0.08 K/uL (0.00-0.20); BASOPHILS PERCENT AUTO 0.9 % (0.0-1.0); EOSINOPHILS ABSOLUTE AUTO 0.13 K/uL (0.00-0.45); EOSINOPHILS PERCENT AUTO 1.5 % (0.0-6.0); IMMATURE GRAN ABSOLUTE AUTO 0.04 K/uL (0.00-0.05); IMMATURE GRAN PERCENT AUTO 0.4 % (0.0-0.4); LYMPHOCYTES ABSOLUTE AUTO 3.14 K/uL (1.00-4.80); LYMPHOCYTES PERCENT AUTO 35.3 % (24.0-44.0); MEAN PLATELET VOLUME 12.0 fL (9.4-12.3); MONOCYTES ABSOLUTE AUTO 0.82 K/uL (0.00-0.80); MONOCYTES PERCENT AUTO 9.2 % (0.0-8.0); NEUTROPHILS ABSOLUTE AUTO 4.68 K/uL (1.80-7.70); NEUTROPHILS PERCENT AUTO 52.7 % (41.0-71.0); NRBC ABSOLUTE 0.00 K/uL (0.00-0.02); NRBC PERCENT 0.0 /100WBC (0.0-0.2); PLATELET COUNT,PLT 198 K/uL (150-400); RED BLOOD CELL COUNT 5.04 M/uL (4.10-5.30); WHITE BLOOD CELL COUNT,WBC 8.89 K/uL (3.9-11.3)
[2025-06-28 09:42] LABS: INR 3.08 (0.86-1.11); PTT,PARTIAL THROMBOPLSTIN TIME 50.6 SEC (23.9-30.7)
[2025-06-28] MEDS: Iopamidol 755 Mg/ML 100 ML Bottle IVPUSH ONE (10:11)
[2025-06-28 10:38] LABS: APPEARANCE,URINE CLEAR; GLUCOSE,URINE NEGATIVE (NEGATIVE); OCCULT BLOOD,URINE TRACE-INTACT (NEGATIVE)
[2025-06-28] MEDS: Acetaminophen/HYDROcodone 325-5 MG Tab PO ONE (10:45)
[2025-06-28 10:46] LABS: EPITHELIAL CELLS,URINE FEW (NONE-FEW)
[2025-06-28 11:10] LABS: A/G RATIO 1.0 (0.9-1.6); ALANINE AMINOTRANSFERASE,ALT 23.0 IU/L (14-63); ASPARTATE AMNIOTRANSFERASE,AST 21.0 IU/L (15-37); BILIRUBIN TOTAL 0.5 mg/dL (0.2-1.0); BLOOD UREA NITROGEN,BUN 8.0 mg/dL (7.0-18.0); CARBON DIOXIDE,CO2 25.7 mmol/L (21.0-32.0); CHLORIDE,CL 104.0 mmol/L (98-107); CREATININE 0.8 mg/dL (0.6-1.0); EST CRCL DRUG DOSING (CG) 71.03 mL/min; ESTIMATED GFR 89.0 mL/min (>60); GLUCOSE RANDOM 109.0 mg/dL (74-106); POTASSIUM,K 3.9 mmol/L (3.5-5.1); PROTEIN TOTAL,TP 7.9 g/dL (6.4-8.2); SODIUM,NA 141.0 mmol/L (136-145)
[2025-06-28 12:36] VITALS: PULSE 63
[2025-06-28 13:40] VITALS: BP 137/84
== END 2025-06-28 13:52 | disposition other institution (70) ==
LOC: MW.ED 08:56
DX: R07.89 Other chest pain (principal); E78.00 Pure hypercholesterolemia, unspecified; E11.9 Type 2 diabetes mellitus without complications; F17.200 Nicotine dependence, unspecified, uncomplicated; Z88.5 Allergy status to narcotic agent; Z88.8 Allergy status to other drugs, medicaments and biological substances; Z79.899 Other long term (current) drug therapy; Z79.01 Long term (current) use of anticoagulants
CPT/HCPCS: 36415; 71045; 71275; 80053; 81001; 83690; 84484; 85025; 85379; 85610; 85730; 93005; 99285; A9270; Q9967; 99283